=== PATIENT | female | born 1960 | race Caucasian/White ===

== ENCOUNTER → 2019-11-21 | Outpatient (CLI) | payer BC ==
[~2019-11-21] MED LIST: ACHD5005 PO; CEPH500C PO; DICL75TA2 PO; EST.1TD TD; FLDR.1T PO; HYDR1TAB PO; HYDR5TAB PO; IBP600T1 PO; KEFLEX 500MG PO; LIOT25TA4 PO; LIOT5TAB3 PO; LVT.05T PO; NTR50C PO; SULF-222 PO
--- NOTE | 2019-11-21 15:54 | Diagnostic Imaging Report ---
PROCEDURE: US carotid duplex, bilateral. INDICATION: Right-sided carotid bruit TECHNIQUE: Multiple real-time grayscale images were obtained over the carotid arteries in various projections bilaterally. Additional spectral analysis and color Doppler and Duplex images were also obtained. FINDINGS: Color images demonstrate very mild scattered plaque formation. This is most pronounced at the level of the carotid bifurcations. Right Carotid System: Right Common Carotid Artery: Patent. There is no abnormally elevated velocity to suggest a hemodynamically significant stenosis. Right Internal Carotid Artery: Patent. There is no abnormally elevated velocity to suggest a hemodynamically significant stenosis. Right External Carotid Artery: Patent. Left Carotid System: Left Common Carotid Artery: Patent. There is no abnormally elevated velocity to suggest a hemodynamically significant stenosis. Left Internal Carotid Artery: Patent. There is no abnormally elevated velocity to suggest a hemodynamically significant stenosis. Left External Carotid Artery: Patent. Vertebral arteries: Patent and with antegrade direction of flow. DOPPLER (peak systolic velocity M/S Right Left CCA .96 .80 ICA Proximal .29 .59 ICA Mid .78 1.05 ICA Distal 1.17 1.33 RATIO 1.22 1.66 ECA .88 .98 VERT .27 .93 IMPRESSION: 1. Carotid Doppler imaging demonstrates no findings to suggest a hemodynamically significant stenosis of the internal carotid arteries at this time. Parameters based on the consensus panel Saunders-Scale and Doppler ultrasound criteria published August 2003, Radiology, Volume 229. Dictated by: Dictated on workstation # [id number]
== END ==
LOC: RAD 14:59
PROVIDERS: ATTEND Internal Medicine
DX: I63.9 Cerebral infarction, unspecified (principal); I73.9 Peripheral vascular disease, unspecified
CPT/HCPCS: 93880

== ENCOUNTER 2019-12-03 15:16 | Inpatient (IN) | payer BC ==
[2019-12-03] VITALS (7 sets, daily range): BP systolic 117–172; BP diastolic 80–108
[~2019-12-03] VITALS: Ht 167.7 cm; Wt 65.9 kg
[2019-12-03] MEDS ORDERED: NS IV 1000 ML 1,000 ML ONE (15:20)
[2019-12-03] MEDS ORDERED: NS IV 1000 ML 1,000 ML IV SCH ×2 (15:24→15:36)
[2019-12-03] MEDS ORDERED: ADENOSINE 6 MG/2 ML (ADENOCARD) VIAL IV ONE (15:26)
--- NOTE | 2019-12-03 15:27 | ED Cardiac General ---
History of Present Illness General Stated Complaint: CP Source: patient Exam Limitations: no limitations History of Present Illness Date Seen by Provider: Dec 03, 2019 Time Seen by Provider: 15:17 Initial Comments Patient resists ER by private conveyance with chief complaint of some heart palpitations, rapid heart rate and pressure across her chest starting this afternoon. She says started about 5 minutes after taking some cough medicine but she denies taking anything left in, pseudoephedrine etc. She does not have a history of SVT or A. fib. She said her mom did her mom recently of a stroke last year. 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 She's not on blood thinners. She does not history of heart attack or stroke. She does not have stents. She is having any nausea sweats but she does have some lightheadedness and weakness. She has chronically low blood pressure and was started about 5 days ago on a statin by Dr. Hay her primary care doctor. Allergies and Home Medications Allergies Coded Allergies: Sulfa(Sulfonamide Antibiotics) (Unverified Allergy, 04/29/12) Home Medications Cephalexin Monohydrate 500 Mg Capsule, 1 EACH PO DAILY, (Reported) Estradiol 0.1 Mg Patch, 0.1 MG TD ONCE Prescribed by: DEL MORIN on 05/14/13 0907 Levothyroxine Sodium 50 Mcg Tablet, 1 EACH PO DAILY, (Reported) Patient Home Medication List Home Medication List Reviewed: Yes Review of Systems Review of Systems Constitutional: No chills, No diaphoresis EENTM: No Blurred Vision, No Double Vision Respiratory: Denies Cough, Denies Orthopnea Cardiovascular: Chest Pain; Denies Lightheadedness Gastrointestinal: Denies Abdominal Pain, Denies Constipated, Denies Diarrhea, Denies Nausea Genitourinary: Denies Burning, Denies Discharge Musculoskeletal: No back pain, No joint pain Skin: No pruritus, No rash Psychiatric/Neurological: Denies Headache, Denies Numbness Past Yonjctd-Hczhtd-Rkbwpp Hx Patient Social History Alcohol Use: Regular Use Alcohol Beverage of Choice: Wine Recreational Drug Use: No Smoking Status: Never a Smoker Recent Foreign Travel: No Contact w/Someone Who Travel: No Past Medical History Reproductive Disorders: No Female Reproductive Disorders: Menstrual Problems Adrenal Disease, Hypothyroidsim Physical Exam Vital Signs Vital Signs - First Documented 12/03/19 15:18 Temp 36.3 Pulse 189 Resp 24 B/P (MAP) 83/59 (67) Pulse Ox 96 O2 Delivery Room Air Capillary Refill : Height, Weight, BMI Height: '" Weight: 120lbs. oz. 54.604173kv; BMI Method: General Appearance: No Apparent Distress, Anxious HEENT: PERRL/EOMI, Pharynx Normal, Moist Mucous Membranes Neck: Full Range of Motion, Normal Inspection Respiratory: No Accessory Muscle Use, Rales (right base), Respiratory Distress (mild) Cardiovascular: No Edema, Irregularly Irregular, Tachycardia Gastrointestinal: Normal Bowel Sounds, No Pulsatile Mass Extremity: Normal Capillary Refill, Normal Inspection, No Pedal Edema Neurologic/Psychiatric: Alert, Oriented x3 Skin: Normal Color, Warm/Dry Focused Exam Lactate Level 12/03/19 16:00: Lactic Acid Level 2.12*H Lactic Acid Level Laboratory Tests Test 12/03/19 16:00 Lactic Acid Level 2.12 MMOL/L (0.50-2.00) *H Progress/Results/Core Measures Results/Orders Lab Results Laboratory Tests Test 12/03/19 15:25 12/03/19 16:00 Range/Units White Blood Count 15.1 H 4.3-11.0 10^3/uL Red Blood Count 4.61 4.35-5.85 10^6/uL Hemoglobin 14.5 11.5-16.0 G/DL Hematocrit 44 35-52 % Mean Corpuscular Volume 95 80-99 FL Mean Corpuscular Hemoglobin 32 25-34 PG Mean Corpuscular Hemoglobin Concent 33 32-36 G/DL Red Cell Distribution Width 13.4 10.0-14.5 % Platelet Count 272 130-400 10^3/uL Mean Platelet Volume 9.9 7.4-10.4 FL Neutrophils (%) (Auto) 84 H 42-75 % Lymphocytes (%) (Auto) 9 L 12-44 % Monocytes (%) (Auto) 6 0-12 % Eosinophils (%) (Auto) 1 0-10 % Basophils (%) (Auto) 0 0-10 % Neutrophils # (Auto) 12.7 H 1.8-7.8 X 10^3 Lymphocytes # (Auto) 1.4 1.0-4.0 X 10^3 Monocytes # (Auto) 0.9 0.0-1.0 X 10^3 Eosinophils # (Auto) 0.1 0.0-0.3 10^3/uL Basophils # (Auto) 0.0 0.0-0.1 10^3/uL Neutrophils % (Manual) 85 % Lymphocytes % (Manual) 9 % Monocytes % (Manual) 6 % Prothrombin Time 13.4 12.2-14.7 SEC INR Comment 1.0 0.8-1.4 Activated Partial Thromboplast Time 25 24-35 SEC Sodium Level 140 135-145 MMOL/L Potassium Level 3.5 L 3.6-5.0 MMOL/L Chloride Level 102 98-107 MMOL/L Carbon Dioxide Level 26 21-32 MMOL/L Anion Gap 12 5-14 MMOL/L Blood Urea Nitrogen 14 7-18 MG/DL Creatinine 0.80 0.60-1.30 MG/DL Estimat Glomerular Filtration Rate > 60 BUN/Creatinine Ratio 18 Glucose Level 137 H 70-105 MG/DL Calcium Level 9.6 8.5-10.1 MG/DL Corrected Calcium 9.4 8.5-10.1 MG/DL Magnesium Level 2.0 1.6-2.4 MG/DL Total Bilirubin 0.2 0.1-1.0 MG/DL Aspartate Amino Transf (AST/SGOT) 24 5-34 U/L Alanine Aminotransferase (ALT/SGPT) 18 0-55 U/L Alkaline Phosphatase 68 40-136 U/L Myoglobin 46.9 10.0-92.0 NG/ML Troponin I < 0.028 <0.028 NG/ML Total Protein 7.2 6.4-8.2 GM/DL Albumin 4.3 3.2-4.5 GM/DL Smear Scan YES Lactic Acid Level 2.12 *H 0.50-2.00 MMOL/L Micro Results Microbiology 12/03/19 Influenza Types A,B Antigen ([facility]AT[facility]) - Final, Complete My Orders Orders - SAMARA ACEVEDO Ekg Tracing (12/03/19 15:18) Continuous Ekg Monitoring (12/03/19 15:18) Cbc With Automated Diff (12/03/19 15:21) Magnesium (12/03/19 15:21) Chest 1 View, Ap/Pa Only (12/03/19 15:21) Ekg Tracing (12/03/19 15:21) Comprehensive Metabolic Panel (12/03/19 15:21) Myoglobin Serum (12/03/19 15:21) Protime With Inr (12/03/19 15:21) Partial Thromboplastin Time (12/03/19 15:21) O2 (12/03/19 15:21) Monitor-Rhythm Ecg Trace Only (12/03/19 15:21) Lipid Panel (12/04/19 06:00) Ed Iv/Invasive Line Start (12/03/19 15:21) Troponin I (12/03/19 15:21) Aspirin Chewable Tablet (Baby Aspirin Ch (12/03/19 15:30) Ed Iv/Invasive Line Start (12/03/19 15:24) Ns Iv 1000 Ml (Sodium Chloride 0.9%) (12/03/19 15:24) Ns Iv 1000 Ml (Sodium Chloride 0.9%) (12/03/19 15:20) Adenosine Injection (Adenocard Injection (12/03/19 15:26) Manual Differential (12/03/19 15:25) Digoxin Injection (Lanoxin Injection) (12/03/19 15:30) Digoxin Injection (Lanoxin Injection) (12/03/19 15:45) Ed Iv/Invasive Line Start (12/03/19 15:36) Ns Iv 1000 Ml (Sodium Chloride 0.9%) (12/03/19 15:36) Ua Culture If Indicated (12/03/19 15:47) Drug Screen Stat (Urine) (12/03/19 15:47) Blood Culture (12/03/19 15:49) Sputum Culture (12/03/19 15:49) Vital Signs Adult Sepsis Patie Q15M (12/03/19 15:49) Remove Rings In Anticipation O (12/03/19 15:49) Lactic Acid Analyzer (12/03/19 15:49) Influenza A And B Antigens (12/03/19 15:49) Ceftriaxone For Iv Use (Rocephin For I (12/03/19 16:00) Azithromycin Injection (Zithromax Inject (12/03/19 16:00) Enoxaparin Injection (Lovenox Injection) (12/03/19 16:00) Medications Given in ED Current Medications Medications Dose Ordered Sig/Emy Route Start Time Stop Time Status Last Admin Dose Admin Aspirin 324 mg ONCE ONCE PO 12/03/19 15:30 12/03/19 15:31 DC 12/03/19 15:28 324 MG Azithromycin 500 mg/Sodium Chloride 250 ml @ 250 mls/hr ONCE ONCE IV 12/03/19 16:00 12/03/19 16:59 12/03/19 16:37 250 MLS/HR Ceftriaxone Sodium 1000 mg/ Sterile Water 10 ml @ 200 mls/hr ONCE ONCE IV 12/03/19 16:00 12/03/19 16:02 DC 12/03/19 16:29 200 MLS/HR Digoxin 0.5 mg ONCE ONCE IV 12/03/19 15:45 12/03/19 15:46 DC 12/03/19 15:39 0.5 MG Enoxaparin Sodium 60 mg ONCE ONCE SC 12/03/19 16:00 12/03/19 16:01 DC 12/03/19 16:12 60 MG Vital Signs/I&O 12/03/19 15:18 Temp 36.3 Pulse 189 Resp 24 B/P (MAP) 83/59 (67) Pulse Ox 96 O2 Delivery Room Air Progress Progress Note #1: Time: 16:07 Progress Note A. fib with rapid ventricular response however she has a loose, productive cough and has been treated with doxycycline outpatient for bronchitis. Suspect she may have underlying pneumonia. We'll give her Rocephin and azithromycin and after consultation with cardiology we have ordered Lovenox, 2 L of fluid, obtained placement in the ICU start her on Cardizem drip. Progress Note #2: Time: 16:55 Progress Note After visiting with Dr. English and he recommends a dose of Solu-Medrol for stress she is on hydrocortisone for adrenal insufficiency. 125 mg IV ordered. Initial ECG Impression Date: Dec 03, 2019 Initial ECG Impression Time: 15:22 Initial ECG Rate: 165 Initial ECG Rhythm: A Fib/Flutter Initial ECG Intervals: QT (477) Initial ECG Impression: Normal, Nonspecific Changes Initial ECG Comparisson: No Previous ECG Available Comment Atrial fibrillation with rapid ventricular response. Diagnostic Imaging Diagonstic Imaging: Xray Plain Films/CT/US/NM/MRI: chest Comments NAME: MARCIA PEÑA [facility] REC#: [id number] PT STATUS: REG ER : 1960 PHYSICIAN: SAMARA ACEVEDO MD ADMIT DATE: 12/03/19/ER Draft Date of Exam:12/03/19 CHEST 1 VIEW, AP/PA ONLY INDICATION: Cough and increased white blood cell count. Frontal chest obtained at 03:52 p.m. There is no prior study for comparison. Heart is normal in size. Mediastinal silhouette is unremarkable. There is some infiltrate in the right medial base. The left lung is clear. There is no pneumothorax or pleural fluid. IMPRESSION: Focal infiltrate in right medial base. Otherwise negative chest. Dictated on workstation # [id number] Dict: 12/03/19 1604 Trans: 12/03/19 1611 [id number] Interpreted by: UMANG AZUL MD Electronically signed by: Consults : Consulting Physician: CALOS ENGLISH MD Consults Notes Discussed the case with Dr. English, cardiology on-call. He is in the middle the case but after reviewing the case over the telephone he says infused 2 L of IV fluid give her half a milligram of digoxin IV and when the pressure improves we can start Cardizem. At this time does not recommend electrocardioversion or Adenocard. The rate does appear to be atrial fib. Departure Communication (Admissions) Time/Spoke to Admitting Phy: 15:45 Discussed the case with Dr. Hanson and she agrees to admit the patient to the ICU with consultation to cardiology. Rocephin and azithromycin is okay for pneumonia. Time/Spoke to Consulting Phy: 15:[address] English and when his grandmother's case he will come down to review the patient. We agreed upon Lovenox if no contraindications, digoxin and Cardizem for blood pressure systolic rises above 100. Impression Primary Impression: Atrial fibrillation with rapid ventricular response Additional Impressions: Pneumonia Qualified Codes: J18.9 - Pneumonia, unspecified organism Sepsis Qualified Codes: A41.9 - Sepsis, unspecified organism Disposition: ADMITTED INPATIENT Condition: Critical Admissions Decision to Admit Reason: Admit from ER (General) Decision to Admit/Date: Dec 03, 2019 Time/Decision to Admit Time: 16:09 Departure-Patient Inst. Referrals: KRYSTIN HAY MD (PCP/Family) Primary Care Physician SAMARA ACEVEDOb 12, 2020 15:27
[2019-12-03] MEDS ORDERED: ASPIRIN 81 MG CHEW (CHILDREN'S ASA) PO ONE (15:30)
[2019-12-03] MEDS ORDERED: DIGOXIN 0.25 MG/ML (LANOXIN) 2 ML AMP ONE (15:30)
[2019-12-03 15:32] LABS: BASOPHILS % (AUTO) 0 % (0-10); EOSINOPHILS # (AUTO) 0.1 10^3/uL (0.0-0.3); EOSINOPHILS % (AUTO) 1 % (0-10); HEMATOCRIT 44 % (35-52); HEMOGLOBIN 14.5 G/DL (11.5-16.0); LYMPHOCYTES # (AUTO) 1.4 X 10^3 (1.0-4.0); LYMPHOCYTES % (AUTO) 9 % (12-44); MEAN CORPUSCULAR HEMOGLOBIN 32 PG (25-34); MEAN CORPUSCULAR HGB CONC 33 G/DL (32-36); MEAN CORPUSCULAR VOLUME 95 FL (80-99); MEAN PLATELET VOLUME 9.9 FL (7.4-10.4); MONOCYTES # (AUTO) 0.9 X 10^3 (0.0-1.0); MONOCYTES % (AUTO) 6 % (0-12); NEUTROPHILS # (AUTO) 12.7 X 10^3 (1.8-7.8); NEUTROPHILS % (AUTO) 84 % (42-75); PLATELET COUNT 272 10^3/uL (130-400); RED CELL DISTRIBUTION WIDTH 13.4 % (10.0-14.5); WHITE BLOOD COUNT 15.1 10^3/uL (4.3-11.0)
[2019-12-03 15:44] LABS: PROTHROMBIN TIME PATIENT 13.4 SEC (12.2-14.7)
[2019-12-03] MEDS ORDERED: DIGOXIN 0.25 MG/ML (LANOXIN) 2 ML AMP IV ONE (15:45)
[2019-12-03 15:50] LABS: ALANINE AMINOTRANSFERASE 18 U/L (0-55); ALBUMIN 4.3 GM/DL (3.2-4.5); ALKALINE PHOSPHATASE 68 U/L (40-136); BILIRUBIN,TOTAL 0.2 MG/DL (0.1-1.0); BUN/CREATININE RATIO 18; CALCIUM 9.6 MG/DL (8.5-10.1); CARBON DIOXIDE 26 MMOL/L (21-32); CHLORIDE 102 MMOL/L (98-107); GFR ESTIMATED > 60; GLUCOSE 137 MG/DL (70-105); POTASSIUM 3.5 MMOL/L (3.6-5.0); SODIUM 140 MMOL/L (135-145); TOTAL PROTEIN 7.2 GM/DL (6.4-8.2)
[2019-12-03 15:57] LABS: LYMPHOCYTES % (MANUAL) 9 %; MONOCYTES % (MANUAL) 6 %; NEUTROPHILS % (MANUAL) 85 %; SMEAR SCAN COMMENT YES
[2019-12-03] MEDS ORDERED: ENOXAPARIN 60 MG/0.6 ML (LOVENOX) SYR SC ONE (16:00)
[2019-12-03] MEDS ORDERED: AZITHROMYCIN INJECTION 500 MG in NS (IVPB) 250 ML IV ONE (16:00)
[2019-12-03] MEDS ORDERED: cefTRIAXone FOR IV USE 1,000 MG in WATER (STERILE) FOR INJECTION 10 ML IV ONE (16:00)
--- NOTE | 2019-12-03 16:12 | Diagnostic Imaging Report ---
INDICATION: Cough and increased white blood cell count. Frontal chest obtained at 03:52 p.m. There is no prior study for comparison. Heart is normal in size. Mediastinal silhouette is unremarkable. There is some infiltrate in the right medial base. The left lung is clear. There is no pneumothorax or pleural fluid. IMPRESSION: Focal infiltrate in right medial base. Otherwise negative chest. Dictated by: Dictated on workstation # [id number]
[2019-12-03 16:19] LABS: BILIRUBIN,URINE NEGATIVE (NEGATIVE); CLARITY,URINE CLEAR; COLOR,URINE YELLOW; GLUCOSE, URINE (UA) NEGATIVE (NEGATIVE); KETONES,URINE TRACE (NEGATIVE); LEUKOCYTE ESTERASE ,URINE NEGATIVE (NEGATIVE); NITRITE,URINE NEGATIVE (NEGATIVE); PH,URINE 6.5 (5-9); PROTEIN,URINE NEGATIVE (NEGATIVE)
[2019-12-03] MEDS ORDERED: 1/2 NS W/KCL 20 MEQ/L 1,000 ML IV ONE (16:23)
[2019-12-03] MEDS ORDERED: 1/2 NS W/KCL 20 MEQ/L 1,000 ML IV SCH (16:30)
[2019-12-03 16:33] LABS: BACTERIA,URINE TRACE /HPF; RBC,URINE 0-2 /HPF; WBC,URINE RARE /HPF
[2019-12-03 16:37] LABS: AMPHETAMINE SCREEN, URINE NEGATIVE (NEGATIVE); BARBITURATE SCREEN URINE NEGATIVE (NEGATIVE); BENZODIAZEPINES SCREEN URINE NEGATIVE (NEGATIVE); CANNABINOID SCREEN, URINE NEGATIVE (NEGATIVE); COCAINE SCREEN URINE NEGATIVE (NEGATIVE); METHADONE STAT NEGATIVE (NEGATIVE); METHAMPHETAMINE SCREEN URINE S NEGATIVE (NEGATIVE); OPIATE SCREEN URINE NEGATIVE (NEGATIVE); OXYCODONE STAT NEGATIVE (NEGATIVE); PROPOXYPHENE STAT NEGATIVE (NEGATIVE); TRICYCLIC ANTIDEPRESSANTS SCRE NEGATIVE (NEGATIVE)
--- NOTE | 2019-12-03 16:40 | NUR ---
Marry reported Dr. English would like to see pt in ED, so holding pt in ED now.
--- NOTE | 2019-12-03 16:47 | NUR ---
Dr. English in room with pt at this time.
[2019-12-03] MEDS ORDERED: methylPREDNISolone 125 MG (Solu-MEDROL) VIAL IVP ONE (17:00)
--- NOTE | 2019-12-03 17:09 | Consultation-Cardiology ---
HPI-Cardiology Cardiology Consultation Date of Consultation 12/03/19 Date of Admission Time Seen by Provider: 17:04 Indication: tachycardia HPI 59-year-old lady with history of hypothyroidism, history of Whit[place] disease, starting to have cough and shortness of breath which has been worsening recently. Started to have chest pain tightness in her chest and feeling rapid heart rate, sent to the emergency room by Dr. Hay noted to be in atrial fibrillation with rapid ventricular response and hypotensive. So far received 2 L of IV fluid and still borderline hypotensive complaining of fatigue, loss of energy, no fever. No syncope or near syncopal episodes. No claudications. Home Medications & Allergies Allergies: Coded Allergies: Sulfa(Sulfonamide Antibiotics) (Unverified Allergy, 04/29/12) Home Medication List Reviewed: Yes SSC-Bgcqlf-[id number] Hx Patient Social History Marital Status: Employed/Student: employed Alcohol Use: Regular Use Recreational Drug Use: No Smoking Status: Never a Smoker 2nd Hand Smoke Exposure: No Recent Foreign Travel: No Recent Infectious Disease Expo: No Recent Hopitalizations: No Past Medical History Discussed below Family Medical History Family Medical Hx Noncontributory to her current condition Review of Systems-General Review of Systems Constitutional: No chills, No diaphoresis; malaise, weakness EENTM: see HPI, no symptoms reported Respiratory: see HPI, cough, dyspnea on exertion; No hemoptysis, No orthopnea, No phlegm; short of breath; No stridor; wheezing; No other Cardiovascular: see HPI, chest pain; No edema, No Hx of Intervention; palpitations; No syncope, No vascular heart diseas, No other Gastrointestinal: no symptoms reported, see HPI Genitourinary: no symptoms reported, see HPI Musculoskeletal: see HPI; No back pain, No joint pain Skin: see HPI; No pruritus, No rash Psychiatric/Neurological: No Symptoms Reported, See HPI; Denies Headache, Denies Numbness Reviewed Test Results Reviewed Test Results Lab Laboratory Tests Test 12/03/19 15:25 12/03/19 16:00 12/03/19 16:11 Range/Units White Blood Count 15.1 H 4.3-11.0 10^3/uL Red Blood Count 4.61 4.35-5.85 10^6/uL Hemoglobin 14.5 11.5-16.0 G/DL Hematocrit 44 35-52 % Mean Corpuscular Volume 95 80-99 FL Mean Corpuscular Hemoglobin 32 25-34 PG Mean Corpuscular Hemoglobin Concent 33 32-36 G/DL Red Cell Distribution Width 13.4 10.0-14.5 % Platelet Count 272 130-400 10^3/uL Mean Platelet Volume 9.9 7.4-10.4 FL Neutrophils (%) (Auto) 84 H 42-75 % Lymphocytes (%) (Auto) 9 L 12-44 % Monocytes (%) (Auto) 6 0-12 % Eosinophils (%) (Auto) 1 0-10 % Basophils (%) (Auto) 0 0-10 % Neutrophils # (Auto) 12.7 H 1.8-7.8 X 10^3 Lymphocytes # (Auto) 1.4 1.0-4.0 X 10^3 Monocytes # (Auto) 0.9 0.0-1.0 X 10^3 Eosinophils # (Auto) 0.1 0.0-0.3 10^3/uL Basophils # (Auto) 0.0 0.0-0.1 10^3/uL Neutrophils % (Manual) 85 % Lymphocytes % (Manual) 9 % Monocytes % (Manual) 6 % Prothrombin Time 13.4 12.2-14.7 SEC INR Comment 1.0 0.8-1.4 Activated Partial Thromboplast Time 25 24-35 SEC Sodium Level 140 135-145 MMOL/L Potassium Level 3.5 L 3.6-5.0 MMOL/L Chloride Level 102 98-107 MMOL/L Carbon Dioxide Level 26 21-32 MMOL/L Anion Gap 12 5-14 MMOL/L Blood Urea Nitrogen 14 7-18 MG/DL Creatinine 0.80 0.60-1.30 MG/DL Estimat Glomerular Filtration Rate > 60 BUN/Creatinine Ratio 18 Glucose Level 137 H 70-105 MG/DL Calcium Level 9.6 8.5-10.1 MG/DL Corrected Calcium 9.4 8.5-10.1 MG/DL Magnesium Level 2.0 1.6-2.4 MG/DL Total Bilirubin 0.2 0.1-1.0 MG/DL Aspartate Amino Transf (AST/SGOT) 24 5-34 U/L Alanine Aminotransferase (ALT/SGPT) 18 0-55 U/L Alkaline Phosphatase 68 40-136 U/L Myoglobin 46.9 10.0-92.0 NG/ML Troponin I < 0.028 <0.028 NG/ML Total Protein 7.2 6.4-8.2 GM/DL Albumin 4.3 3.2-4.5 GM/DL Smear Scan YES Lactic Acid Level 2.12 *H 0.50-2.00 MMOL/L Urine Color YELLOW Urine Clarity CLEAR Urine pH 6.5 5-9 Urine Specific [place] 1.010 L 1.016-1.022 Urine Protein NEGATIVE NEGATIVE Urine Glucose (UA) NEGATIVE NEGATIVE Urine Ketones TRACE H NEGATIVE Urine Nitrite NEGATIVE NEGATIVE Urine Bilirubin NEGATIVE NEGATIVE Urine Urobilinogen 0.2 < = 1.0 MG/DL Urine Leukocyte Esterase NEGATIVE NEGATIVE Urine RBC (Auto) NEGATIVE NEGATIVE Urine RBC 0-2 /HPF Urine WBC RARE /HPF Urine Squamous Epithelial Cells 5-10 /HPF Urine Crystals NONE /LPF Urine Bacteria TRACE /HPF Urine Casts PRESENT /LPF Urine Hyaline Casts 5-10 H /LPF Urine Mucus NEGATIVE /LPF Urine Culture Indicated NO Urine Opiates Screen NEGATIVE NEGATIVE Urine Oxycodone Screen NEGATIVE NEGATIVE Urine Methadone Screen NEGATIVE NEGATIVE Urine Propoxyphene Screen NEGATIVE NEGATIVE Urine Barbiturates Screen NEGATIVE NEGATIVE Ur Tricyclic Antidepressants Screen NEGATIVE NEGATIVE Urine Phencyclidine Screen NEGATIVE NEGATIVE Urine Amphetamines Screen NEGATIVE NEGATIVE Urine Methamphetamines Screen NEGATIVE NEGATIVE Urine Benzodiazepines Screen NEGATIVE NEGATIVE Urine Cocaine Screen NEGATIVE NEGATIVE Urine Cannabinoids Screen NEGATIVE NEGATIVE Physical Exam Physical Exam Vital Signs Vital Signs - First Documented 12/03/19 15:18 Temp 36.3 Pulse 189 Resp 24 B/P (MAP) 83/59 (67) Pulse Ox 96 O2 Delivery Room Air Capillary Refill : Less Than 3 Seconds Height, Weight, BMI Height: '" Weight: 120lbs. oz. 54.500178xs; 19.00 BMI Method: General Appearance: No Apparent Distress, Anxious HEENT: PERRL/EOMI, Pharynx Normal, Moist Mucous Membranes Neck: Full Range of Motion, Normal Inspection Respiratory: No Accessory Muscle Use, Crackles, Decreased Breath Sounds, Rales, Rhonci, Wheezing Cardiovascular: No Edema, Irregularly Irregular, Tachycardia Gastrointestinal: Normal Bowel Sounds, No Pulsatile Mass Extremity: Normal Capillary Refill, Normal Inspection, No Pedal Edema Neurologic/Psychiatric: Alert, Oriented x3 Skin: Normal Color, Warm/Dry A/P-Cardiology Admission Diagnosis Atrial fibrillation Tachycardia Pneumonia Hypotension Assessment/Plan Atrial fibrillation with rapid ventricular response, hypotensive, cannot tolerate aggressive treatment at this time. So far I started on IV fluids, steroids and digoxin IV, I am planning to add Cardizem once her blood pressure is more stable. Started on Lovenox for now. Hypotension, multifactorial, sepsis and pneumonia in addition to tachycardia and hypokalemia. Replace and monitor next Whit[place] disease, has been on hydrocortisone as an outpatient. I will use stress doses of steroid due to the recent infection which could be participating in her hypotension Hypothyroidism, maintained on thyroid replacement, managed by primary care physician next Chest pain probably secondary to tachycardia and old other comorbid condition Pneumonia, started on antibiotic, managed by primary care physician CALOS BERMUDEZ MD Dec 03, 2019 17:09
[2019-12-03] MEDS ORDERED: ACETAMINOPHEN 500 MG TAB (TYLENOL) PO PRN (17:30)
[2019-12-03] MEDS ORDERED: ONDANSETRON 4 MG/2 ML (SDV) Z0FRAN IV PRN (17:30)
[2019-12-03] MEDS ORDERED: EPINEPHrine 1 MG INJECTION 2 MG in NS (IVPB) 250 ML IV SCH (17:30)
[2019-12-03] MEDS: dilTIAZem DRIP 125 MG/125 ML DRIP IV SCH (18:38)
[2019-12-03] MEDS: NOREPINEPHRINE 4 MG/250 ML 250 ML IV SCH (18:42)
[2019-12-03] MEDS: VASOPRESSIN INJECTION 20 UNIT in NORMAL SALINE 100 ML IV SCH (18:43)
[2019-12-03] MEDS: NS W/KCL 20 MEQ/L 1,000 ML IV SCH ×2 (18:45→21:30)
[2019-12-03] MEDS ORDERED: HYDROCORTISONE 20 MG (CORTEF) TAB PO NR (21:00)
--- NOTE | 2019-12-03 23:49 | NUR ---
THIS RN NOTIFIED E-ICU OF PT BP 167/105 AND THAT PT HAS BEEN SUSTAINING BP'S AT 150-170S/100S.
[2019-12-04] VITALS (29 sets, daily range): BP systolic 135–180; BP diastolic 78–118
[2019-12-04] MEDS: NS W/KCL 20 MEQ/L 1,000 ML IV SCH ×3 (01:30→16:02)
[2019-12-04] MEDS: VASOPRESSIN INJECTION 20 UNIT in NORMAL SALINE 100 ML IV SCH ×3 (02:08→17:38)
[2019-12-04] MEDS: LABETALOL HCL 20 MG/4 ML VIAL IV PRN ×2 (02:32→14:35)
[2019-12-04 04:09] LABS: BASOPHILS % (AUTO) 0 % (0-10); EOSINOPHILS % (AUTO) 0 % (0-10); HEMATOCRIT 38 % (35-52); HEMOGLOBIN 12.3 G/DL (11.5-16.0); LYMPHOCYTES # (AUTO) 0.4 X 10^3 (1.0-4.0); LYMPHOCYTES % (AUTO) 4 % (12-44); MEAN CORPUSCULAR HEMOGLOBIN 31 PG (25-34); MEAN CORPUSCULAR HGB CONC 33 G/DL (32-36); MEAN CORPUSCULAR VOLUME 96 FL (80-99); MEAN PLATELET VOLUME 10.6 FL (7.4-10.4); MONOCYTES # (AUTO) 0.2 X 10^3 (0.0-1.0); MONOCYTES % (AUTO) 1 % (0-12); NEUTROPHILS # (AUTO) 11.2 X 10^3 (1.8-7.8); NEUTROPHILS % (AUTO) 95 % (42-75); PLATELET COUNT 194 10^3/uL (130-400); RED CELL DISTRIBUTION WIDTH 13.4 % (10.0-14.5); WHITE BLOOD COUNT 11.7 10^3/uL (4.3-11.0)
--- NOTE | 2019-12-04 04:34 | Pulmonary Consultation ---
History of Present Illness History of Present Illness Date Seen by Provider: Dec 04, 2019 Time Seen by Provider: 04:28 Date of Admission Reason for Visit: tachycardia History of Present Illness 59yo with hx of addisons disease, hypothyroid presented to ED secondary palpitations starting just prior to ED admission. While in the ED she was found to have Afib RVR and was mildly hypotensive. She was admitted to ICU with cardizem gtt and cardiology consulted. Troponin is also elevated to 1.8. pt has no hx of Afib. Allergies and Home Medications Allergies Coded Allergies: Sulfa (Sulfonamide Antibiotics) (Unverified Allergy, Unknown, 12/03/19) Home Medications Cephalexin Monohydrate 500 Mg Capsule, 1 EACH PO DAILY, (Reported) Estradiol 0.1 Mg Patch, 0.1 MG TD ONCE Prescribed by: DEL MORIN on 05/14/13 0907 Levothyroxine Sodium 50 Mcg Tablet, 1 EACH PO DAILY, (Reported) Past Rinkfbh-Ekhwuw-Qzbdjb Hx Patient Social History Alcohol Use: Regular Use Alcohol Beverage of Choice: Wine Recreational Drug Use: No Smoking Status: Never a Smoker 2nd Hand Smoke Exposure: No Recent Foreign Travel: No Contact w/Someone Who Travel: No Recent Infectious Disease Expo: No Recent Hopitalizations: No Past Medical History Surgeries: Yes Hysterectomy Respiratory: No Cardiac: No High Cholesterol Neurological: No Reproductive Disorders: No Female Reproductive Disorders: 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 UTI-Chronic Gastrointestinal: No Chronic Constipation Musculoskeletal: Yes (bursitis) Endocrine: Yes Adrenal Disease, Hypothyroidsim HEENT: No Cancer: No Psychosocial: No Blood Disorders: No Adverse Reaction/Blood Tranf: No Review of Systems Time Seen by Provider: 09:09 Constitutional: Weakness, Malaise; No: Fever, Chills, Sweats, Other Eyes: No: Pain, Vision change, Conjunctivae inflammation, Eyelid inflammation, Other, Redness ENT: No: Ear pain, Ear discharge, Nose pain, Nose discharge, Nose congestion, Mouth pain, Mouth swelling, Throat pain, Throat swelling, Other Respiratory: Cough, Dry, Shortness of breath Cardiovascular: Chest Pain, Palpitations Sepsis Event Evaluation Height, Weight, BMI Height: '" Weight: 120lbs. oz. 54.397535jz; 20.97 BMI Method: Exam Exam Vital Signs Date Time Temp Pulse Resp B/P (MAP) Pulse Ox O2 Delivery O2 Flow Rate FiO2 2/13/20 03:26 36.4 12/04/19 01:00 66 16 154/95 (114) 94 Room Air 12/04/19 01:00 64 12/04/19 00:31 Room Air 12/04/19 00:00 68 13 155/98 (117) 94 Room Air 12/03/19 23:26 36.2 12/03/19 23:00 69 17 171/100 (123) 95 Room Air 12/03/19 22:00 79 15 159/105 (123) 95 Room Air 12/03/19 21:00 77 18 172/103 (126) 95 Room Air 12/03/19 20:00 80 18 167/108 (127) 96 Room Air 12/03/19 20:00 Room Air 12/03/19 19:51 37.0 12/03/19 19:00 88 14 145/105 (118) 95 Room Air 12/03/19 19:00 142 12/03/19 18:00 120 14 117/92 (100) 96 Room Air 12/03/19 17:30 151 16 121/80 (94) 93 Room Air 12/03/19 17:20 95 Room Air 12/03/19 17:18 155 12/03/19 17:05 36.3 144 15 102/78 (67) 96 Room Air 12/03/19 15:18 36.3 189 24 83/59 (67) 96 Room Air I & O 12/04/19 07:00 Intake Total 4060 ml Balance 4060 ml Height & Weight Height: '" Weight: 120lbs. oz. 54.923142pk; 20.97 BMI Method: General Appearance: No Apparent Distress, Anxious HEENT: PERRL/EOMI, Pharynx Normal, Moist Mucous Membranes Neck: Full Range of Motion, Normal Inspection Respiratory: No Accessory Muscle Use, Crackles, Decreased Breath Sounds, Rales, Rhonci, Wheezing Cardiovascular: No Edema, Irregularly Irregular, Tachycardia Capillary Refill: Less Than 3 Seconds Extremity: Normal Capillary Refill, Normal Inspection, No Pedal Edema Neurologic/Psychiatric: Alert, Oriented x3 Skin: Normal Color, Warm/Dry Results Lab Laboratory Tests 12/03/19 15:25 12/04/19 03:03 Assessment/Plan Assessment/Plan Atrial fibrillation with RVR -Cardizem gtt -Cardiology following Pneumonia -Continue rocephin, azithromycin NSTEMI -Cardiology following Hypertension Avel disease, has been on hydrocortisone as an outpatient Hypothyroid -Synthroid ZENIA SANTIAGO DO Dec 04, 2019 04:34
[2019-12-04 04:40] LABS: BUN/CREATININE RATIO 13; CALCIUM 7.3 MG/DL (8.5-10.1); CARBON DIOXIDE 19 MMOL/L (21-32); CHLORIDE 112 MMOL/L (98-107); CHOLESTEROL 132 MG/DL (< 200); GFR ESTIMATED > 60; GLUCOSE 147 MG/DL (70-105); HDL CHOLESTEROL 83 MG/DL (40-60); MAGNESIUM 1.8 MG/DL (1.6-2.4); PHOSPHORUS 2.5 MG/DL (2.3-4.7); POTASSIUM 3.7 MMOL/L (3.6-5.0); SODIUM 141 MMOL/L (135-145); TRIGLYCERIDES 78 MG/DL (<150); VLDL CHOLESTEROL 16 MG/DL (5-40)
[2019-12-04] MEDS: ENOXAPARIN 60 MG/0.6 ML (LOVENOX) SYR SC SCH ×2 (04:49→17:10)
[2019-12-04] MEDS: NOREPINEPHRINE 4 MG/250 ML 250 ML IV SCH ×2 (04:58→15:17)
[2019-12-04] MEDS: POTASSIUM CL 10MEQ/50ML IVPB 50 ML IV SCH ×3 (05:11→06:44)
[2019-12-04] MEDS: MAGNESIUM 1 GM/100 ML IVPB 100 ML IV SCH (05:11)
[2019-12-04] MEDS: KCL 20 MEQ TAB (K-DUR) PO SCH (05:11)
--- NOTE | 2019-12-04 07:17 | Cardiology Progress Note ---
Subjective Date Seen by Provider: Dec 04, 2019 Time Seen by Provider: 07:14 Subjective/Events-last exam Patient is laying down in bed, feeling better, still having cough and chest pain on coughing Review of Systems General: No Chills, No Night Sweats, No Fatigue, No Malaise, No Appetite, No Other HEENT: No Head Aches, No Visual Changes, No Eye Pain, No Ear Pain, No Dysphasia, No Sinus Congestion, No Post Nasal Drip, No Sore Throat, No Other Pulmonary: Dyspnea, Cough; No Pleuritic Chest Pain, No Other Cardiovascular: No: Chest Pain, Palpitations, Orthopnea, Paroxysmal Noc. Dyspnea, Edema, Lt Headedness, Other Focused Exam Lactate Level 12/03/19 16:00: Lactic Acid Level 2.12*H 12/03/19 17:52: Lactic Acid Level 1.26 Objective-Cardiology Exam Last Set of Vital Signs Vital Signs 12/04/19 12/04/19 03:26 06:00 Temp 36.4 Pulse 69 Resp 17 B/P (MAP) 140/92 (108) Pulse Ox 96 O2 Delivery Room Air Capillary Refill : Less Than 3 Seconds I&O Intake and Output 12/04/19 00:00 Intake Total 3010 ml Balance 3010 ml Intake Oral 0 ml IV Total 3010 ml # Voids 8 # Bowel Movements 3 Daily Weight Change No General: Alert, Oriented X3, Cooperative HEENT: Atraumatic, PERRLA Neck: Supple, No JVD, No Thyromegaly Lungs: Normal Air Movement, Other (Bilateral rhonchi) Heart: Regular Rate, Normal S1, Normal S2, No Murmurs Abdomen: Normal Bowel Sounds, Soft, No Tenderness, No Hepatosplenomegaly, No Masses Extremities: No Clubbing, No Cyanosis, No Edema, Normal Pulses, No T enderness/Swelling Skin: No Rashes, No Breakdown, No Significant Lesion Neuro: Normal Gait, Normal Speech, Strength at 5/5 X4 Ext, Normal Tone, Sensation Intact Psych/Mental Status: Mental Status NL, Mood NL Results Lab Laboratory Tests 12/03/19 15:25 12/04/19 03:03 A/P-Cardiology Admission Diagnosis Non-ST elevation myocardial infarction Paroxysmal atrial fibrillation Pneumonia Hypothyroidism Assessment/Plan Non-ST elevation myocardial infarction, could be secondary to tachycardia and hypotension, underlying coronary artery disease cannot be excluded, I am planning to proceed with cardiac catheterization possible PTCA. Paroxysmal atrial fibrillation with rapid ventricular response, converted to sinus rhythm, currently on Cardizem, I will stop the drip and continue to monitor Status post hypotensive episode, multifactorial, better at this time Avel disease, has been on hydrocortisone as an outpatient, given steroid dose in the emergency room, I recommend stress dose of steroid at this time. Pneumonia, receiving antibiotic, managed by Dr. Noyola Hypothyroidism, managed by primary care physician Clinical Quality Measures DVT/VTE Risk/Contraindication: Risk Factor Score Per Nursin RFS Level Per Nursing on Admit: 4+=Very High CALOS BERMUDEZ MD Dec 04, 2019 07:16
[2019-12-04] MEDS ORDERED: HYDROCORTISONE 20 MG (CORTEF) TAB PO SCH ×2 (07:30→14:00)
[2019-12-04] MEDS ORDERED: HYDROCORTISONE 20 MG (CORTEF) TAB PO NR ×2 (07:30→14:00)
[2019-12-04] MEDS: NS IV 1000 ML 1,000 ML IV SCH ×4 (07:31→22:44)
--- NOTE | 2019-12-04 08:03 | Diagnostic Imaging Report ---
CHEST 1 VIEW, AP/PA ONLY Indication: Dyspnea Comparison: 12/03/2019 Findings: Right middle lobe heterogeneous opacities persist. No new airspace disease. No pleural effusion or pneumothorax. Stable cardiomediastinal silhouette. Impression: 1. No change in right basilar pulmonary opacities. Dictated by: Dictated on workstation # [id number]
[2019-12-04] MEDS ORDERED: LEVOTHYROXINE 75 MCG (LEVOTHROID) TABLET PO NR (08:15)
[2019-12-04] MEDS ORDERED: fluCOnazole (DIFLUCAN) 100 MG TAB PO SCH (08:30)
--- NOTE | 2019-12-04 08:58 | History & Physical-Hospitalist ---
History of Present Illness HPI/Chief Complaint Pt is a 59yoCF with a PMH of hypothyroidism and [place]'s disease who presented to the ER due to her chest pounding. She states she has had "bronchitis" off and on since this past fall and it started again a few weeks ago. She left work early yesterday due to her symptoms from her cold and when she went home and laid down she felt that her chest was pounding which prompted her to seek evaluation in the ER. She was found to be in a-fib with RVR. She was mildly hypotensive so was started on fluids and digoxin and ultimately a cardizem gtt when blood pressures were uimproved. Overnight she converted back to sinus rhythm and was titrated off the cardizem gtt. Unfortunately her troponin went from negative to 1.[address] English has seen her and recommended a cardiac cath but patient would prefer evaluation by Dr Meléndez as that is who her sees. Her only other concern at this time is vaginal irritation and is requesting Diflucan. Date Seen 12/04/19 Time Seen by a Provider: 08:38 Attending Physician Dee Hanson MD PCP Krystin Hay MD Referring Physician CALOS ENGLISH MD Date of Admission Dec 03, 2019 at 16:00 Home Medications & Allergies Home Medications Reviewed patient Home Medication Reconciliation performed by pharmacy medication reconciliations motion study technician and/or nursing. Patients Allergies have been reviewed. Allergies Allergies Coded Allergies Sulfa (Sulfonamide Antibiotics) (Unverified Allergy, Unknown, 12/03/19) Past Tdxivos-Uqyhey-Bpvqfl Hx Past Med/Social Hx: Reviewed Nursing Past Med/Soc Hx Patient Social History Marrital Status: Employed/Student: employed Alcohol Use: Regular Use Alcohol Beverage of Choice: Wine Recreational Drug Use: No Smoking Status: Never a Smoker 2nd Hand Smoke Exposure: No Recent Foreign Travel: No Contact w/other who traveled: No Recent Hopitalizations: No Recent Infectious Disease Expo: No Past Medical History Surgeries: Hysterectomy Cardiac: High Cholesterol Reproductive: No Female Reproductive Disorders: Menstrual Problems Hysterectomy Genitourinary: UTI-Chronic Gastrointestinal: Chronic Constipation Endocrine: Adrenal Disease, Hypothyroidsim History of Blood Disorders: No Adverse Reaction to Blood Perez: No Review of Systems Constitutional: see HPI Respiratory: cough, short of breath Cardiovascular: chest pain; No Hx of Intervention; palpitations Gastrointestinal: no symptoms reported Genitourinary: no symptoms reported Musculoskeletal: no symptoms reported Skin: no symptoms reported Psychiatric/Neurological: No Symptoms Reported Physical Exam Physical Exam Vital Signs Vital Signs - First Documented 12/03/19 15:18 Temp 36.3 Pulse 189 Resp 24 B/P (MAP) 83/59 (67) Pulse Ox 96 O2 Delivery Room Air Capillary Refill : Less Than 3 Seconds Height, Weight, BMI Height: '" Weight: 120lbs. oz. 54.996696de; 20.97 BMI Method: General Appearance: No Apparent Distress, WD/WN HEENT: Moist Mucous Membranes; No Scleral Icterus (L), No Scleral Icterus (R) Neck: Normal Inspection, Supple Respiratory: Lungs Clear, No Accessory Muscle Use, No Respiratory Distress Cardiovascular: Regular Rate, Rhythm, No JVD, No Murmur Gastrointestinal: Normal Bowel Sounds, Non Tender, Soft Extremity: Normal Capillary Refill, No Calf Tenderness Neurologic/Psychiatric: Alert, Oriented x3, Normal Mood/Affect Skin: Normal Color, Warm/Dry Results Results/Procedures Labs Patient resulted labs reviewed. Imaging: Reviewed Imaging Report Assessment/Plan Admission Diagnosis Atrial Fibrillation with RVR NSTEMI Admission Status: Inpatient Order (span 2 midnights) Reason for Inpatient Admission: IV cardizem, likely needs a cath Assessment and Plan Atrial Fibrillation with RVR NSTEMI Now off cardizem gtt Echo being done while I was at bedside Cardiology consulted appreciate recs Keep NPO for possible cath CAP Continue Rocephin and Azithro Not severe sepsis, lactic acidosis and hypotension due to atrial fibrillation Await cultures Pulm consulted, appreciate recs Avel's Disease BP improved- will avoid stress dose for now but low threshold for it Continue home steroids HLD Continue statin when med rec available Vaginal Candidiasis Diflucan ordered Diagnosis/Problems Diagnosis/Problems (1) [place] disease Status: Chronic (2) Hypothyroidism Status: Chronic Qualifiers: Hypothyroidism type: unspecified Qualified Codes: E03.9 - Hypothyroidism, unspecified (3) Atrial fibrillation with rapid ventricular response Status: Acute (4) Pneumonia Status: Acute Qualifiers: Pneumonia type: due to unspecified organism Laterality: unspecified latera lity Lung location: unspecified part of lung Qualified Codes: J18.9 - Pneumonia, unspecified organism Clinical Quality Measures DVT/VTE Risk/Contraindication: Risk Factor Score Per Nursin RFS Level Per Nursing on Admit: 4+=Very High Copy Copies To 1: KRYSTIN HAY MD, KATELYN M MD Dec 04, 2019 08:58
[2019-12-04] MEDS: PANTOPRAZOLE 40 MG (PROTONIX) TAB PO SCH (09:10)
[2019-12-04 09:51] LABS: FREE T4 (FREE THYROXINE) 0.9 NG/DL (0.70-1.48)
[2019-12-04] MEDS ORDERED: CNC1KV INJ (10:36)
[2019-12-04] MEDS ORDERED: DEXT15CA28 PO (10:36)
[2019-12-04] MEDS ORDERED: NFIPRATRNS NS (10:36)
[2019-12-04] MEDS ORDERED: HYDR5TAB8 PO (10:36)
[2019-12-04] MEDS ORDERED: LEVO75TA PO (10:36)
[2019-12-04] MEDS ORDERED: BENZ200C51 PO (10:36)
[2019-12-04] MEDS ORDERED: ROSU10TA22 PO (10:36)
[2019-12-04] MEDS ORDERED: HYDR5TAB PO (10:36)
[2019-12-04] MEDS ORDERED: ESTR1TAB24 PO (10:36)
[2019-12-04] MEDS ORDERED: FLDR.1T PO (10:36)
[2019-12-04] MEDS ORDERED: FLUC100T6 PO (10:36)
--- NOTE | 2019-12-04 10:36 | NUR ---
PATIENT HAD HER MEDICATION BOTTLES WITH HER EXCEPT FOR HER NASAL SPRAY, B12 INJECTIONS, AND OTC VITAMINS. HER HYDROCORTISONE WAS FILLED 1-4-20 5MG TABS 3.5 TABS IN MORNING AND 1 OR 2 IN THE AFTERNOON. SHE STATES SHE TAKES 2 AM AND 1.5 AT 4PM. SHE STATES SHE DOES THE B12 INJECTIONS EVERY TWO WEEKS. SHE TAKES THE FOLLOWING OTC: [employer] DAILY POTASSIUM DAILY VITAMIN D DAILY VITAMIN E DAILY. Addendum: 12/04/19 at 1042 by ERNESTO ROTH [facility] SHE ALSO HAS ROBITUSSIN CAPSULES SHE WAS TAKING OTC.
[2019-12-04] MEDS ORDERED: VITA-240 PO (10:40)
[2019-12-04] MEDS ORDERED: CHOL200025 PO (10:40)
[2019-12-04] MEDS ORDERED: POTA99TA21 PO (10:40)
[2019-12-04] MEDS ORDERED: MULT1TAB69 PO (10:40)
[2019-12-04] MEDS ORDERED: LIDOCAINE 1% INJ 20 ML 20 ML VIAL ONE (13:08)
[2019-12-04] MEDS ORDERED: HEParin (CATH LAB) 2,000 ML IV ONE (13:08)
[2019-12-04] MEDS ORDERED: cefTRIAXone 1,000 MG/SWFI 10 ML IV PUSH IV SCH ×2 (16:00)
[2019-12-04] MEDS ORDERED: fentaNYL INJECTION 100 MCG/2 ML AMP ONE (16:08)
[2019-12-04] MEDS ORDERED: MIDAZOLAM 5 MG/5 ML (VERSED) VIAL ONE (16:08)
[2019-12-04] MEDS ORDERED: AZITHROMYCIN 500 MG/NS 250 ML IVPB IV SCH ×2 (16:30)
[2019-12-04] MEDS ORDERED: methylPREDNISolone 125 MG (Solu-MEDROL) VIAL ONE (17:06)
[2019-12-04] MEDS ORDERED: diphenhydrAMINE 50 MG/ML INJ (BENADRYL) ONE (17:06)
--- NOTE | 2019-12-04 17:07 | NUR ---
PT LEFT FLOOR VIA BED W/ SAUSAGE GRINDER STAFF.
[2019-12-04] MEDS ORDERED: NS IV 1000 ML 1,000 ML ONE (17:09)
[2019-12-04] MEDS: dilTIAZem DRIP 125 MG/125 ML DRIP IV SCH (17:10)
[2019-12-04] MEDS ORDERED: meTOprolol 5 MG/5 ML (LOPRESSOR) VIAL ONE (17:46)
[2019-12-04] MEDS ORDERED: ENALAPRILAT 1.25 MG/1 ML (VASOTEC) 1 ML VIAL IV ONE (17:46)
[2019-12-04] MEDS ORDERED: PATIENT MAY USE OWN MEDS, ALL PO SCH (18:30)
--- NOTE | 2019-12-04 18:40 | NUR ---
PT BACK TO FLOOR VIA BED W/ ORAL AND MAXILLOFACIAL SURGEON STAFF.
--- NOTE | 2019-12-04 18:41 | Progress Note - Cardiology ---
Cardiology SOAP Progress Note Subjective: No cp or syncope Shortness of breath improved Has cough productive of small quantities of yellowish sputum No leg swelling No n/v/d Objective: I&O/Vital Signs 12/04/19 12/04/19 12/04/19 12/04/19 07:00 07:00 08:00 08:00 Pulse 70 68 74 Resp 21 20 B/P (MAP) 137/83 (101) 148/92 (110) Pulse Ox 95 97 O2 Delivery Room Air Room Air Room Air 12/04/19 12/04/19 12/04/19 12/04/19 08:28 09:00 10:00 11:00 Temp 37.0 Pulse 75 65 86 Resp 20 21 12 B/P (MAP) 167/101 (123) 157/118 (131) 142/78 (99) Pulse Ox 95 96 95 O2 Delivery Room Air Room Air Room Air 12/04/19 12/04/19 12/04/19 12/04/19 12:00 12:00 12:09 12:20 Temp 36.5 Pulse 70 83 Resp 16 B/P (MAP) 146/85 (105) Pulse Ox 95 O2 Delivery Room Air Room Air 12/04/19 12/04/19 12/04/19 12/04/19 13:00 14:00 15:00 15:30 Temp 36.7 Pulse 71 70 67 Resp 16 10 20 B/P (MAP) 163/96 (118) 180/112 (134) 169/97 (121) Pulse Ox 95 96 95 O2 Delivery Room Air Room Air Room Air 12/04/19 12/04/19 12/04/19 15:42 16:00 17:00 Pulse 78 73 Resp 21 B/P (MAP) 162/97 (118) 156/106 (123) Pulse Ox 95 94 O2 Delivery Room Air Room Air Room Air 12/04/19 00:00 Intake Total 3010 ml Balance 3010 ml Weight (Pounds): 120 Weight (Calculated Kilograms): 54.577252 Constitutional: AAO x 3, well-developed, well-nourished Respiratory: No accessory muscle use; other (good air entry, basal coarse crackles, scattered rhonchi over large airways) Cardiovascular: regular rate-rhythm, S1 and S2, systolic murmur (faint LISE at card ase) Gastrointestional: No tender; soft; No guarding, No rebound; audible bowel deepak nds Extremities: No clubbing, No cyanosis, No significant edema Neurologic/Psychiatric: oriented x 3, other (moves all limbs equally) Skin: No rash on exposed areas, No ulcerations on exposed areas Results/Procedures: Labs Laboratory Tests 12/03/19 21:55: Troponin I 1.677*H 12/04/19 03:03: Troponin I 1.847*H, White Blood Count 11.7H, Red Blood Count 3.92L, Hemoglobin 12.3, Hematocrit 38, Mean Corpuscular Volume 96, Mean Corpuscular Hemoglobin 31, Mean Corpuscular Hemoglobin Concent 33, Red Cell Distribution Width 13.4, Platelet Count 194, Mean Platelet Volume 10.6H, Neutrophils (%) (Auto) 95H, Lymphocytes (%) (Auto) 4L, Monocytes (%) (Auto) 1, Eosinophils (%) (Auto) 0, Basophils (%) (Auto) 0, Neutrophils # (Auto) 11.2H, Lymphocytes # (Auto) 0.4L, Monocytes # (Auto) 0.2, Eosinophils # (Auto) 0.0, Basophils # (Auto) 0.0, Sodium Level 141, Potassium Level 3.7, Chloride Level 112#H, Carbon Dioxide Level 19L, Anion Gap 10, Blood Urea Nitrogen 8, Creatinine 0.60, Estimat Glomerular Filtration Rate > 60, BUN/Creatinine Ratio 13, Glucose Level 147H, Calcium Level 7.3L, Phosphorus Level 2.5, Magnesium Level 1.8, Triglycerides Level 78, Cholesterol Level 132, LDL Cholesterol Direct 19, VLDL Cholesterol 16, HDL Cholesterol 83H, Thyroid Stimulating Hormone (TSH) 0.34L, Free Thyroxine 0.90 Microbiology 12/03/19 Influenza Types A,B Antigen (JHONATAN) - Final, Complete 12/03/19 Blood Culture - Preliminary, Resulted No growth Laboratory Tests 12/03/19 15:25 12/04/19 03:03 A/P: Assessment: Pneumonia with sepsis and septic shock (presented with low bp on 12/03/19) PAF with RVR at presentation on 12/03/19, currently NSR Mild troponin elevation due to transient hypotension and PAF with RVR, type-2 SD Card cath of 12/04/19: normal coronaries, normal LVEF (60%) Echo of 12/04/19: LVEF 60-65%, RVSP 23 mmHg Chronic steroid therapy, reportedly for [place]'s disease Hypertension H/o hypothyroidism, currently borderline hyperthyroid (probably iatrogenic) Plan: * Beta-ya for hypertension and ventricular rate control * Apixaban for stroke prophylaxis. D/c Lovenox * D/c ASA. No CAD * Monitor labs * I had a detailed discussion with her and her this am, and discussed cath results with her this pm CARMELLA RAMIREZ MD FACP FACC CCDS Dec 04, 2019 18:41
[2019-12-04] MEDS ORDERED: meTOprolol SUCCINATE 100 MG (TOPROL XL) TAB PO ONE ×2 (18:45→22:33)
--- NOTE | 2019-12-04 20:47 | CARDIAC CATHETERIZATION ---
DATE OF SERVICE: 12/03/2019 CARDIAC CATHETERIZATION REPORT The patient is a 59-year-old lady who was hospitalized with pneumonia and sepsis. She had presented with somewhat low blood pressure and atrial fibrillation with rapid ventricular response. Her troponin was subsequently elevated, giving rise to suspicion of acute [place]. Informed consent was obtained for cardiac catheterization. DESCRIPTION OF PROCEDURE: She was brought to the cardiac catheterization laboratory in a fasting state. Right groin was prepared and draped in the usual sterile fashion. Lidocaine 1% for local anesthesia. Modified Seldinger technique was used to advance a 5-Bolivian sheath in right femoral artery, 5-Bolivian JL4 catheter for left coronary angiography, 5-Bolivian JR4 catheter for right coronary angiography, 5-Bolivian pigtail catheter was used for left heart catheterization and left ventricular angiography. Pigtail catheter was removed. Angiography of the right femoral artery was carried out through the sheath. Mynx was used to achieve hemostasis. She tolerated the procedure well. HEMODYNAMICS: Left ventricular end-diastolic pressure following coronary angiography was 17 mmHg. There is no significant pressure gradient on pullback across the aortic valve. Ascending aortic pressure was 168/85 with a mean of 120 mmHg. CORONARY ANGIOGRAPHY: Left main coronary artery, left anterior descending artery, left circumflex artery, right coronary artery are angiographically normal. LEFT VENTRICULAR ANGIOGRAPHY: Left ventricular angiography was carried out in the right anterior oblique projection. Global left ventricular systolic function is normal. No regional wall motion abnormality was seen. Left ventricular ejection fraction approximately 60%. CONCLUSIONS: 1. Angiographically normal coronary arteries. 2. Normal global left ventricular systolic function with ejection fraction approximately 60%. 3. Left ventricular end-diastolic pressure is 17 mmHg. DISCUSSION AND RECOMMENDATIONS: Based on results of the study, troponin elevation does not appear to be of coronary origin. Continuing risk factor modification is advised. Job ID: [id number] DocumentID: [id number] Dictated Date: 12/04/2019 18:33:33 [employer] Date: 12/04/2019 20:46:05 Dictated By: CARMELLA RAMIREZ MD, MA, FACP, FACC,
[2019-12-04] MEDS: APIXABAN 5 MG (ELIQUIS) TABLET PO SCH (22:39)
[2019-12-05] VITALS (8 sets, daily range): BP systolic 133–174; BP diastolic 84–100
[2019-12-05 03:45] LABS: BASOPHILS % (AUTO) 0 % (0-10); EOSINOPHILS % (AUTO) 0 % (0-10); HEMATOCRIT 34 % (35-52); HEMOGLOBIN 10.8 G/DL (11.5-16.0); LYMPHOCYTES # (AUTO) 0.7 X 10^3 (1.0-4.0); LYMPHOCYTES % (AUTO) 7 % (12-44); MEAN CORPUSCULAR HEMOGLOBIN 32 PG (25-34); MEAN CORPUSCULAR HGB CONC 32 G/DL (32-36); MEAN CORPUSCULAR VOLUME 99 FL (80-99); MEAN PLATELET VOLUME 10.1 FL (7.4-10.4); MONOCYTES # (AUTO) 0.7 X 10^3 (0.0-1.0); MONOCYTES % (AUTO) 7 % (0-12); NEUTROPHILS # (AUTO) 8.4 X 10^3 (1.8-7.8); NEUTROPHILS % (AUTO) 86 % (42-75); PLATELET COUNT 182 10^3/uL (130-400); RED CELL DISTRIBUTION WIDTH 14.4 % (10.0-14.5); WHITE BLOOD COUNT 9.8 10^3/uL (4.3-11.0)
[2019-12-05 04:10] LABS: BUN/CREATININE RATIO 15; CALCIUM 7.1 MG/DL (8.5-10.1); CARBON DIOXIDE 20 MMOL/L (21-32); CHLORIDE 116 MMOL/L (98-107); CREATININE SERUM 0.67 MG/DL (0.60-1.30); GFR ESTIMATED > 60; GLUCOSE 163 MG/DL (70-105); MAGNESIUM 1.9 MG/DL (1.6-2.4); PHOSPHORUS 2.4 MG/DL (2.3-4.7); POTASSIUM 3.9 MMOL/L (3.6-5.0); SODIUM 143 MMOL/L (135-145)
[2019-12-05] MEDS: VASOPRESSIN INJECTION 20 UNIT in NORMAL SALINE 100 ML IV SCH (04:23)
[2019-12-05] MEDS: NOREPINEPHRINE 4 MG/250 ML 250 ML IV SCH (04:24)
[2019-12-05] MEDS: NS W/KCL 20 MEQ/L 1,000 ML IV SCH ×2 (04:24→05:24)
[2019-12-05] MEDS: POTASSIUM CL 10MEQ/50ML IVPB 50 ML IV SCH (04:50)
[2019-12-05] MEDS: MAGNESIUM 1 GM/100 ML IVPB 100 ML IV SCH (04:50)
[2019-12-05] MEDS: KCL 20 MEQ TAB (K-DUR) PO SCH (04:51)
[2019-12-05] MEDS ORDERED: hydrALAZINE (APESOLINE) 20 MG/ML VIAL IV PRN (05:00)
--- NOTE | 2019-12-05 05:25 | Pulmonary Progress Note ---
Subjective Time Seen by a Provider: 05:22 Sepsis Event Evaluation Height, Weight, BMI Height: '" Weight: 120lbs. oz. 54.859700tf; 20.97 BMI Method: Focused Exam Lactate Level 12/03/19 16:00: Lactic Acid Level 2.12*H 12/03/19 17:52: Lactic Acid Level 1.26 Exam Exam Vital Signs Date Time Temp Pulse Resp B/P (MAP) Pulse Ox O2 Delivery O2 Flow Rate FiO2 12/05/19 04:23 36.6 12/05/19 04:13 Room Air 12/05/19 01:00 60 12/05/19 00:36 Room Air 12/05/19 00:34 36.4 12/04/19 22:00 59 13 164/98 (120) 98 Room Air 12/04/19 21:30 57 26 166/100 (122) 98 Room Air 12/04/19 21:00 57 13 167/95 (119) 98 Room Air 12/04/19 20:30 56 14 163/97 (119) 98 Room Air 12/04/19 20:00 67 18 160/91 (114) 96 Room Air 12/04/19 20:00 Room Air 12/04/19 19:30 61 16 158/92 (114) 95 Room Air 12/04/19 19:15 57 17 155/92 (113) 96 Room Air 12/04/19 19:07 36.1 12/04/19 19:00 62 17 155/92 (113) 95 Room Air 12/04/19 19:00 62 12/04/19 18:45 64 15 151/92 (111) 93 Room Air 12/04/19 18:30 69 151/93 (112) Room Air 12/04/19 17:00 73 21 156/106 (123) 94 Room Air 12/04/19 16:00 78 162/97 (118) 95 Room Air 12/04/19 15:42 Room Air 12/04/19 15:30 36.7 12/04/19 15:00 67 20 169/97 (121) 95 Room Air 12/04/19 14:00 70 10 180/112 (134) 96 Room Air 12/04/19 13:00 71 16 163/96 (118) 95 Room Air 12/04/19 12:20 83 2/13/20 12:09 36.5 12/04/19 12:00 Room Air 12/04/19 12:00 70 16 146/85 (105) 95 Room Air 12/04/19 11:00 86 12 142/78 (99) 95 Room Air 12/04/19 10:00 65 21 157/118 (131) 96 Room Air 12/04/19 09:00 75 20 167/101 (123) 95 Room Air 12/04/19 08:28 37.0 12/04/19 08:00 Room Air 12/04/19 08:00 74 20 148/92 (110) 97 Room Air 12/04/19 07:00 68 21 137/83 (101) 95 Room Air 12/04/19 07:00 70 12/04/19 06:00 69 17 140/92 (108) 96 Room Air I & O 12/05/19 07:00 Intake Total 2365 ml Output Total 450 ml Balance 1915 ml Height & Weight Height: '" Weight: 120lbs. oz. 54.292676nf; 20.97 BMI Method: General Appearance: No Apparent Distress, Anxious HEENT: PERRL/EOMI, Pharynx Normal, Moist Mucous Membranes Neck: Full Range of Motion, Normal Inspection Respiratory: No Accessory Muscle Use, Crackles, Decreased Breath Sounds, Rales, Rhonci, Wheezing Cardiovascular: No Edema, Irregularly Irregular, Tachycardia Capillary Refill: Less Than 3 Seconds Extremity: Normal Capillary Refill, Normal Inspection, No Pedal Edema Neurologic/Psychiatric: Alert, Oriented x3 Skin: Normal Color, Warm/Dry Results Lab Laboratory Tests 12/03/19 15:25 12/04/19 03:03 12/05/19 03:10 Assessment/Plan Assessment/Plan Atrial fibrillation with RVR - No sinsus -S/p cath per Dr. Tameka Murphy gtt - is now off -Cardiology following Pneumonia - rocephin, azithromycin NSTEMI -Cardiology following Hypertension [place] disease, has been on hydrocortisone as an outpatient Hypothyroid -Synthroid To 4th floor when ok with cardiology. ZENIA SANTIAGO DO Dec 05, 2019 05:25
--- NOTE | 2019-12-05 07:16 | Diagnostic Imaging Report ---
CHEST 1 VIEW, AP/PA ONLY INDICATION: Dyspnea COMPARISON: 12/04/2019 FINDINGS: Progression versus redistribution of moderate size right pleural effusion. Perihilar airspace and interstitial opacities have increased. No pneumothorax. Heart is normal in size. IMPRESSION: 1. Progression of right pleural effusion which is now moderate in size. 2. Worsening of bilateral pulmonary opacities. Dictated by: Dictated on workstation # [id number]
[2019-12-05] MEDS: PANTOPRAZOLE 40 MG (PROTONIX) TAB PO SCH (08:14)
[2019-12-05] MEDS: APIXABAN 5 MG (ELIQUIS) TABLET PO SCH (08:16)
[2019-12-05] MEDS ORDERED: AMLO10TA7 PO (08:26)
[2019-12-05] MEDS ORDERED: LISI-552 PO (08:26)
[2019-12-05] MEDS ORDERED: AZIT250T12 PO (08:26)
[2019-12-05] MEDS ORDERED: APIX5TAB PO (08:26)
[2019-12-05] MEDS ORDERED: MTP100TCR PO (08:26)
[2019-12-05] MEDS ORDERED: CEPH-507 PO (08:26)
--- NOTE | 2019-12-05 08:29 | Discharge Inst-Simple/Standard ---
Discharge Inst-Standard Patient Instructions/Follow Up Plan of Care/Instructions/FU: Please continue to take your medications as written. Please follow up with Dr Hay next week. Please follow up with Dr Meléndez as scheduled Activity as Tolerated: Yes Discharge Diet: Cardiac Diet Return to The Hospital For: Chest pain, palpitations, shortness of breath, worsening cough, fever, or if you feel you are getting worse. JADEN ZAPATA MD Dec 05, 2019 08:29
--- NOTE | 2019-12-05 08:39 | Discharge Summary ---
Diagnosis/Chief Complaint Date of Admission Dec 03, 2019 at 16:00 Date of Discharge Discharge Date: Dec 05, 2019 Admission Diagnosis Atrial Fibrillation with RVR NSTEMI Primary Care Arian Hay MD Discharge Diagnosis (1) [place] disease Status: Chronic (2) Hypothyroidism Status: Chronic (3) Atrial fibrillation with rapid ventricular response Status: Acute (4) Pneumonia Status: Acute Discharge Summary Discharge Physical Exam Allergies: Coded Allergies: Sulfa (Sulfonamide Antibiotics) (Unverified Allergy, Unknown, 12/03/19) Vitals & I&Os Vital Signs Date Time Temp Pulse Resp B/P (MAP) Pulse Ox O2 Delivery O2 Flow Rate FiO2 12/05/19 08:00 67 12 154/90 (111) 95 Room Air 12/05/19 07:12 36.5 General Appearance: No Apparent Distress, WD/WN Respiratory: Lungs Clear, No Respiratory Distress Cardiovascular: Regular Rate, Rhythm, No Murmur Hospital Course Pt was admitted due to atrial fibrillation with RVR which was new onset for her. 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 CXR revealed a pneumonia and she was treated with Rocephin and Azithromycin for CAP coverage. She was discharged home in stable condition to complete antibiotic course. She was continued on Eliquis for stroke prophylaxis and metoprolol for rate control. She is to follow up with Dr Hay in [address] Meléndez as scheduled. Labs (last 24 hrs) Laboratory Tests 12/05/19 03:10: White Blood Count 9.8, Red Blood Count 3.41L, Hemoglobin 10.8L, Hematocrit 34L, Mean Corpuscular Volume 99, Mean Corpuscular Hemoglobin 32, Mean Corpuscular Hemoglobin Concent 32, Red Cell Distribution Width 14.4, Platelet Count 182, Mean Platelet Volume 10.1, Neutrophils (%) (Auto) 86H, Lymphocytes (%) (Auto) 7L , Monocytes (%) (Auto) 7, Eosinophils (%) (Auto) 0, Basophils (%) (Auto) 0, Neutrophils # (Auto) 8.4H, Lymphocytes # (Auto) 0.7L, Monocytes # (Auto) 0.7, Eosinophils # (Auto) 0.0, Basophils # (Auto) 0.0, Sodium Level 143, Potassium Level 3.9, Chloride Level 116H, Carbon Dioxide Level 20L, Anion Gap 7, Blood Urea Nitrogen 10, Creatinine 0.67, Estimat Glomerular Filtration Rate > 60, BUN/Creatinine Ratio 15, Glucose Level 163H, Calcium Level 7.1L, Phosphorus Level 2.4, Magnesium Level 1.9 Microbiology 12/03/19 Influenza Types A,B Antigen (JHONATAN) - Final, Complete 12/03/19 Blood Culture - Preliminary, Resulted No growth Patient resulted labs reviewed. Pending Labs Laboratory Tests 12/05/19 03:10: White Blood Count 9.8, Red Blood Count 3.41, Hemoglobin 10.8, Hematocrit 34, Mean Corpuscular Volume 99, Mean Corpuscular Hemoglobin 32, Mean Corpuscular Hemoglobin Concent 32, Red Cell Distribution Width 14.4, Platelet Count 182, Mean Platelet Volume 10.1, Neutrophils (%) (Auto) 86, Lymphocytes (%) (Auto) 7, Monocytes (%) (Auto) 7, Eosinophils (%) (Auto) 0, Basophils (%) (Auto) 0, Neutrophils # (Auto) 8.4, Lymphocytes # (Auto) 0.7, Monocytes # (Auto) 0.7, Eosinophils # (Auto) 0.0, Basophils # (Auto) 0.0, Sodium Level 143, Potassium Level 3.9, Chloride Level 116, Carbon Dioxide Level 20, Anion Gap 7, Blood Urea Nitrogen 10, Creatinine 0.67, Estimat Glomerular Filtration Rate > 60, BUN/Creatinine Ratio 15, Glucose Level 163, Calcium Level 7.1, Phosphorus Level 2.4, Magnesium Level 1.9 Discussion & Recommendations Discharge Planning: >30 minutes discharge planning Discharge Home Medications: Active Scripts Active Keflex (Cephalexin) 500 Mg Capsule 500 Mg PO BID Lisinopril 20 Mg Tablet 20 Mg PO DAILY Amlodipine Besylate 10 Mg Tablet 10 Mg PO DAILY Metoprolol Succinate 100 Mg Tab.er.24h 100 Mg PO DAILY Eliquis (Apixaban) 5 Mg Tablet 5 Mg PO BID Azithromycin 250 Mg Tablet 250 Mg PO DAILY Reported Vitamin E (Vitamin E (Dl,Tocopheryl Acet)) 400 Unit Capsule 400 Unit PO DAILY Vitamin D3 (Cholecalciferol (Vitamin D3)) 2,000 Unit Tablet 2,000 Unit PO DAILY Potassium (Potassium Gluconate) 99 Mg Tablet 99 Mg PO DAILY Multivitamins (Multivitamin) 1 Each Tablet 1 Tab PO DAILY Cyanocobalamin Injection (Cyanocobalamin) 1,000 Mcg/Ml Inj 1,000 Mcg INJ EVERY 2 WEEKS Robitussin (Dextromethorphan HBr) 15 Mg Capsule 30 Mg PO Q6H PRN Cortef (Hydrocortisone) 5 Mg Tablet 7.5 Mg PO 1600 TAKES 1 & 1/2 (5MG) TABLETS Hydrocortisone 5 Mg Tablet 10 Mg PO DAILY TAKES 2 (5MG) TABLETS Fludrocortisone Acetate 0.1 Mg Tab 0.1 Mg PO DAILY Ipratropium [place] 15 Ml Naspr 1 [place] NS BID Synthroid (Levothyroxine Sodium) 75 Mcg Tablet 75 Mcg PO DAILY Estradiol Tablet (Estradiol) 1 Mg Tablet 1 Mg PO DAILY Crestor (Rosuvastatin Calcium) 10 Mg Tablet 10 Mg PO DAILY Benzonatate 200 Mg Capsule 200 Mg PO Q8H PRN Fluconazole 100 Mg Tablet 100 Mg PO DAILY 5 Days 5 DAY SUPPLY FILLED 11-29-19 Instructions to patient/family Please see electronic discharge instructions given to patient. Clinical Quality Measures DVT/VTE Risk/Contraindication: Risk Factor Score Per Nursin RFS Level Per Nursing on Admit: 4+=Very High Problem Qualifiers (1) Hypothyroidism: Hypothyroidism type: unspecified Qualified Codes: E03.9 - Hypothyroidism, unspecified (2) Pneumonia: Pneumonia type: due to unspecified organism Laterality: unspecified laterality Lung location: unspecified part of lung Qualified Codes: J18.9 - Pneumonia, unspecified organism JADEN ZAPATA MD Dec 05, 2019 08:39
[2019-12-05] MEDS ORDERED: AZITHROMYCIN 250 MG TAB (ZITHROMAX) PO SCH (09:00)
[2019-12-05] MEDS ORDERED: meTOprolol SUCCINATE 100 MG (TOPROL XL) TAB PO SCH (09:00)
[2019-12-05] MEDS ORDERED: lisINopril 20 MG (PRINIVIL) TABLET PO SCH (09:00)
[2019-12-05] MEDS ORDERED: amLODIPine 10 MG (NORVASC) TAB PO SCH (09:00)
--- NOTE | 2019-12-05 10:18 | NUR ---
PROVIDED EDUCATION TO PATIENT ABOUT ELIQUIS. DISCUSSED SIDE EFFECTS (INCLUDING BLEEDING), HOW TO TAKE THE MEDICATION, DRUG AND FOOD INTERACTION. I ANSWERED HER QUESTIONS RELATED TO THE MEDICATION AND ALSO PROVIDED A 30 DAY TRIAL CARD AND COPAY ASSISTANCE CARD.
--- NOTE | 2019-12-05 10:25 | NUR ---
MARCIA PEÑA demonstrates understanding of discharge instructions and accurately returns instructions upon questioning. Copy of Post-Discharge Instructions and Medication Discharge Instructions given to pt. MARCIA PEÑA is able to manage continuing needs after discharge. Patients belongings returned to pt. Skin dry and intact; no breakdown noted. Patient discharged from [facility] on 12/05/19 at 1025. MARCIA PEÑA left floor via wc, accompanied by staff/.
--- NOTE | 2019-12-05 10:42 | Progress Note - Cardiology ---
Cardiology SOAP Progress Note Subjective: No cp or palp or syncope Cough and shortness of breath not resolved, but improved Malaise improved Objective: I&O/Vital Signs 12/04/19 12/05/19 12/05/19 12/05/19 23:00 00:00 00:34 00:36 Temp 36.4 Pulse 60 61 Resp 24 14 B/P (MAP) 160/96 (117) 163/93 (116) Pulse Ox 98 98 O2 Delivery Room Air Room Air Room Air 12/05/19 12/05/19 12/05/19 12/05/19 01:00 01:00 02:00 03:00 Pulse 60 55 59 58 Resp 16 16 16 B/P (MAP) 153/87 (109) 158/89 (112) 152/87 (108) Pulse Ox 95 94 94 O2 Delivery Room Air Room Air Room Air 12/05/19 12/05/19 12/05/19 12/05/19 04:00 04:13 04:23 05:00 Temp 36.6 Pulse 58 56 Resp 18 16 B/P (MAP) 162/92 (115) 174/100 (124) Pulse Ox 94 94 O2 Delivery Room Air Room Air Room Air 12/05/19 12/05/19 12/05/19 12/05/19 06:00 07:00 07:12 08:00 Temp 36.5 Pulse 62 75 Resp 23 B/P (MAP) 133/84 (100) Pulse Ox 94 O2 Delivery Room Air Room Air 12/05/19 08:00 Pulse 67 Resp 12 B/P (MAP) 154/90 (111) Pulse Ox 95 O2 Delivery Room Air 12/05/19 00:00 Intake Total 285 ml Output Total 450 ml Balance -165 ml Weight (Pounds): 120 Weight (Calculated Kilograms): [id number] Condition: DP/PT pulses palpable Device Insertion Site: without hematoma Bruising: mild bruising Constitutional: AAO x 3, well-developed, well-nourished Respiratory: No accessory muscle use; other (good air entry, basal coarse crackles, scattered rhonchi over large airways) Cardiovascular: regular rate-rhythm, S1 and S2, systolic murmur (faint LISE at card ase) Gastrointestional: No tender; soft; No guarding, No rebound; audible bowel sounds Extremities: No clubbing, No cyanosis, No significant edema Neurologic/Psychiatric: oriented x 3, other (moves all limbs equally) Skin: No rash on exposed areas, No ulcerations on exposed areas Results/Procedures: Labs Laboratory Tests 12/05/19 03:10: White Blood Count 9.8, Red Blood Count 3.41L, Hemoglobin 10.8L, Hematocrit 34L, Mean Corpuscular Volume 99, Mean Corpuscular Hemoglobin 32, Mean Corpuscular Hemoglobin Concent 32, Red Cell Distribution Width 14.4, Platelet Count 182, Mean Platelet Volume 10.1, Neutrophils (%) (Auto) 86H, Lymphocytes (%) (Auto) 7L , Monocytes (%) (Auto) 7, Eosinophils (%) (Auto) 0, Basophils (%) (Auto) 0, Neutrophils # (Auto) 8.4H, Lymphocytes # (Auto) 0.7L, Monocytes # (Auto) 0.7, Eosinophils # (Auto) 0.0, Basophils # (Auto) 0.0, Sodium Level 143, Potassium Level 3.9, Chloride Level 116H, Carbon Dioxide Level 20L, Anion Gap 7, Blood Urea Nitrogen 10, Creatinine 0.67, Estimat Glomerular Filtration Rate > 60, BUN/Creatinine Ratio 15, Glucose Level 163H, Calcium Level 7.1L, Phosphorus Level 2.4, Magnesium Level 1.9 Microbiology 12/03/19 Influenza Types A,B Antigen (JHONATAN) - Final, Complete 12/03/19 Blood Culture - Preliminary, Resulted No growth Laboratory Tests 12/03/19 15:25 12/04/19 03:03 12/05/19 03:10 A/P: Assessment: Pneumonia with sepsis and septic shock (presented with low bp on 12/03/19) PAF with RVR at presentation on 12/03/19, currently NSR Mild troponin elevation due to transient hypotension and PAF with RVR, type-2 VT Card cath of 12/04/19: normal coronaries, normal LVEF (60%) Echo of 12/04/19: LVEF 60-65%, RVSP 23 mmHg Chronic steroid therapy, reportedly for Harrison's disease Hypertension H/o hypothyroidism, currently borderline hyperthyroid (probably iatrogenic) Plan: * Beta-ya for hypertension and ventricular rate control * Apixaban for stroke prophylaxis. D/c Lovenox * D/c ASA. No CAD * I discussed her cath findings again with her * I discussed her case with Dr Hanson * Outpt f/u advised CARMELLA RAMIREZ MD FACP FACC [facility] Dec 05, 2019 10:42
--- NOTE | 2019-12-08 07:15 | Physician Query Clarification ---
PQ-Uncertain Diagnosis Admission/Discharge Admission Date: Dec 03, 2019 at 16:00 Discharge Date: Dec 05, 2019 at 10:25 The medical record reflects the following clinical scenario: History/Risk Factors: Hypotension, Chest pounding Clinical Findings: Pneumonia with sepsis and septic shock on 12/03 Treatment: Rocephin, Azithromycin Question: Is [Sepsis and Septic shock] a clinically valid diagnosis? [Sepsis] was documented in the [Cardiology consultation 12/03, progress note 12/05] with no further documentation in the medical record. Please document a response in Progress Note or Discharge Summary. 1. Yes, clinically valid, condition resolved. 2. No, condition ruled out. 3. Other, with explanation of clinical findings. 4. Undetermined, no explanation for clinical findings. PHYSICIAN RESPONSE Diagnosis clinically valid: No, conditon ruled out Please remember a lack of response to the above will prompt a phone page by [facility]/Coding staff. In responding to this query, please exercise your independent professional judgment. The purpose of this communication is to more accurately reflect the complexity of your patients condition. The fact that a question is asked does not imply that any particular answer is desired or expected. Thank you for your timely response to this clarification. Requestors name: [Jane ] Phone # [[phone] ] THIS PHYSICIAN QUERY FORM IS A PERMANENT PART OF THE MEDICAL RECORD ELISABETH PELLETIER Dec 08, 2019 07:15 JADEN ZAPATA MD Dec 11, 2019 10:37
--- OUTSIDE RECORDS SUMMARY | 2019-12-14 08:50 | XMS REPORT | Continuity of Care Document ---
Author Organization Unknown Address Unknown Phone Unavailable Allergies Active Description Code Type Severity Reaction Onset Reported/Identified Relationship to Patient Clinical Status Yes Sulfa (Sulfonamide Antibiotics) [id number] 0491 Drug Allergy Unknown N/A 020 Medications There is no data. Problems Date Dx Coded Attending Type Code Diagnosis Diagnosed By 05/06/2012 Ot 244.9 05/06/2012 Ot 735.0 05/06/2012 Ot V57.1 05/06/2012 Ot V58.69 05/06/2012 Ot V74.8 01/07/2013 Ot V16.0 01/07/2013 Ot V76.51 05/14/2013 DEL MORIN DO Ot 218.9 05/14/2013 DEL MORIN DO C Ot 617.9 05/14/2013 СЕРГЕЙ MORIN DOA C Ot 620.2 12/26/2013 DREW BERGMAN APRN 462 PHARYNGITIS ACUTE 10/05/2014 ANTHONY DYE, ADIA Powell Ot 733.90 11/25/2014 ANTHONY DYE, ADIA Powell Ot 723.1 11/25/2014 ANTHONY DYE, ADIA Powell Ot 723.4 01/18/2016 CANDI STEINBERG DO Ot 255.41 01/18/2016 Ot 735.0 01/18/2016 Ot 754.52 01/18/2016 Ot V72.84 01/18/2016 Ot 626.8 01/18/2016 Ot V72.84 01/18/2016 ASHLEY AG PROOF PLATE MAKER Ot 787.3 01/18/2016 ASHLEY AG [employer]OOF PLATE MAKER Ot 790.6 01/18/2016 ANTHONY DYE, ADIA Powell Ot 573.9 01/18/2016 СЕРГЕЙ MORIN DOA C Ot 218.9 01/18/2016 СЕРГЕЙ MORIN DOA C Ot 791.9 01/18/2016 DEL MORIN DO C Ot V72.6 3 01/18/2016 STEINBERG DO, CANDI L Ot 255.41 01/18/2016 STEINBERG DO, CANDI L Ot 244.9 01/18/2016 STEINBERG DO, CANDI L Ot 255.41 01/18/2016 STEINBERG DO, CANDI L Ot 244.9 01/18/2016 STEINBERG DO, CANDI L Ot 255.41 01/18/2016 ANTHONY DYE, ADIA Powell Ot 785.9 01/18/2016 ANTHONY DYE, ADIA Powell Ot 733.90 01/18/2016 ADIA CRUZ MD Ot 465.9 01/18/2016 ADIA CRUZ MD Ot 723.1 01/18/2016 ADIA CRUZ MD Ot 723.4 01/18/2016 NABEEL AG DO Ot M79.641 01/18/2016 NABEEL AG DO Ot M79.642 02/02/2016 NABEEL AG DO, Ot M79.641 02/02/2016 NABEEL AG DO, Ot M79.642 07/14/2016 NABEEL AG DO Ot Z13.820 ENCOUNTER FOR SCREENING FOR OSTEOPOROSIS 07/25/2016 NABEEL AG DO, Ot Z13.820 ENCOUNTER FOR SCREENING FOR OSTEOPOROSIS 11/21/2019 ADIA CRUZ MD Ot 733.90 BONE CARTILAGE DIS NOS 11/21/2019 ADIA CRUZ MD Ot 465.9 ACUTE URI NOS 11/21/2019 ADIA CRUZ MD Ot 723.1 CERVICALGIA 11/21/2019 ADIA CRUZ MD Ot 723.4 BRACHIAL NEURITIS NOS 11/21/2019 NABEEL AG DO, Ot M79.641 PAIN IN RIGHT HAND 11/21/2019 NABEEL AG DO, Ot M79.642 PAIN IN LEFT HAND 11/21/2019 NABEEL GA DO, Ot Z13.820 ENCOUNTER FOR SCREENING FOR OSTEOPOROSIS 11/25/2019 KRISTEN DYE, KRYSTIN Cruz Ot I63. 9 CEREBRAL INFARCTION, UNSPECIFIED 11/25/2019 KRISTEN DYE, KRYSTIN Cruz Ot I73. 9 PERIPHERAL VASCULAR DISEASE, UNSPECIFIED 12/05/2019 JADEN ZAPATA MD, Ot A41. 9 SEPSIS, UNSPECIFIED ORGANISM 12/05/2019 JADEN ZAPATA MD, Ot B37. 3 CANDIDIASIS OF VULVA AND VAGINA 12/05/2019 JADEN ZAPATA MD, Ot E03. 9 HYPOTHYROIDISM, UNSPECIFIED 12/05/2019 JADEN ZAPATA MD, Ot E27. 1 PRIMARY ADRENOCORTICAL INSUFFICIENCY 12/05/2019 JADEN ZAPATA MD Ot E78. 00 PURE HYPERCHOLESTEROLEMIA, UNSPECIFIED 12/05/2019 JADEN ZAPATA MD, Ot E87. 6 HYPOKALEMIA 12/05/2019 JADEN ZAPATA MD, Ot I48. 0 PAROXYSMAL ATRIAL FIBRILLATION 12/05/2019 JADEN ZAPATA MD, Ot J18. 9 PNEUMONIA, UNSPECIFIED ORGANISM 12/05/2019 JADEN ZAPATA MD, Ot R65. 21 SEVERE SEPSIS WITH SEPTIC SHOCK 12/05/2019 JADEN ZAPATA MD, Ot Z87.440 PERSONAL HISTORY OF URINARY (TRACT) INFE 12/05/2019 JADEN ZAPATA MD, Ot Z90.710 ACQUIRED ABSENCE OF BOTH CERVIX AND UTER 12/09/2019 KRYSTIN PETERSON MD Ot I63. 9 CEREBRAL INFARCTION, UNSPECIFIED 12/09/2019 KRYSTIN PETERSON MD, Ot I73. 9 PERIPHERAL VASCULAR DISEASE, UNSPECIFIED Procedures Code Description [place] [id number] RAFY Ventura (IN-HOUSE) 12/26/2013 [id number] ME ASURE OF CARDIAC SAMPL PRESSURE, L H 12/04/2019 [id number] FL UOROSCOPY OF MULT COR ART USING L OSM 12/04/2019 Results Test Result Range Complete blood count (CBC) with automate d white blood cell (WBC) differential - 12/03/19 15:25 Blood leukocytes automated count (number/volume) 15.1 10*3/uL 4.3-11.0 Blood erythrocytes automated count (number/volume) 4.61 10*6/uL 4.35-5.85 Venous blood hemoglobin measurement (mass/volume) 14.5 g/dL 11.5-16.0 Blood hematocrit (volume fraction) 44 % 35-52 Automated erythrocyte mean corpuscular volume 95 [ foz_us] 80-99 Automated erythrocyte mean corpuscular h emoglobin (mass per erythrocyte) 32 pg 25-34 Automated erythrocyte mean corpuscular h emoglobin concentration measurement (mass/volume) 33 g/dL 32-36 Automated erythrocyte distribution width ratio 13. 4 % 10.0- 14.5 Automated blood platelet count (count/volume) 272 10*3/uL 130-400 Automated blood platelet mean volume measurement 9.9 [foz_us] 7.4-10.4 Automated blood neutrophils/100 leukocytes 84 % 42-75 Automated blood lymphocytes/100 leukocytes 9 % 12-44 Blood monocytes/100 leukocytes 6 % 0-12 Automated blood eosinophils/100 leukocytes 1 % 0-10 Automated blood basophils/100 leukocytes 0 % 0-10 Blood neutrophils automated count (number/volume) 12.7 10*3 1.8-7.8 Blood lymphocytes automated count (number/volume) 1.4 10*3 1.0-4.0 Blood monocytes automated count (number/volume) 0. 9 10*3 0.0-1.0 Automated eosinophil count 0.1 10*3/uL 0 .0-0.3 Automated blood basophil count (count/volume) 0.0 10*3/uL 0.0-0.1 Blood blood smear finding identification by light micr oscopy YES NRG PT panel in platelet poor plasma by coag ulation assay - 12/03/19 15:25 Prothrombin time (PT) in platelet poor plasma by coagu lation assay 13.4 s 12.2-14.7 INR in platelet poor plasma or blood by coagulation as say 1.0 0.8-1.4 Activated partial thromboplastin time (a PTT) in platelet poor plasma bycoagulation assay - 12/03/19 15:25 Activated partial thromboplastin time (a PTT) in platelet poor plasma bycoagulation assay 25 s 24-35 Comprehensive metabolic panel - 12/03/19 15:25 Serum or plasma sodium measurement (moles/volume) 140 mmol/L 135-145 Serum or plasma potassium measurement (moles/volume) 3.5 mmol/L 3.6-5.0 Serum or plasma chloride measurement (moles/volume) 102 mmol/L 98-107 Carbon dioxide 26 mmol/L 21-32 Serum or plasma anion gap determination (moles/volume) 12 mmol/L 5-14 Serum or plasma urea nitrogen measurement (mass/volume ) 14 mg/dL 7-18 Serum or plasma creatinine measurement (mass/volume) 0.80 mg/dL 0.60-1.30 Serum or plasma urea nitrogen/creatinine mass ratio 18 NRG Serum or plasma creatinine measurement w ith calculation of estimated glomerular filtration rate > NRG Serum or plasma glucose measurement (mass/volume) 137 mg/dL 70-105 Serum or plasma calcium measurement (mass/volume) 9.6 mg/dL 8.5-10.1 Serum or plasma total bilirubin measurement (mass/volu me) 0.2 mg/dL 0.1-1.0 Serum or plasma alkaline phosphatase fred surement (enzymatic activity/volume) 68 U/L 40-136 Serum or plasma aspartate aminotransfera se measurement (enzymatic activity/volume) 24 U/L 5-34 Serum or plasma alanine aminotransferase measurement (enzymatic activity/volume) 18 U/L 0-55 Serum or plasma protein measurement (mass/volume) 7.2 g/dL 6.4-8.2 Serum or plasma albumin measurement (mass/volume) 4.3 g/dL 3.2-4.5 CALCIUM CORRECTED 9.4 mg/dL 8.5-10.1 Magnesium - 12/03/19 15:25 Magnesium 2.0 mg/dL 1.6-2.4 Myoglobin, serum - 12/03/19 15:25 Myoglobin, serum 46.9 ng/mL 10.0-92.0 Serum or plasma troponin i.cardiac measu rement (mass/volume) - 12/03/19 15:25 Serum or plasma troponin i.cardiac measurement (mass/v olume) < ng/mL <0.028 Manual absolute plasma cell count - 11/22 12/11 15:25 Blood monocytes/100 leukocytes 6 % NR Manual blood segmented neutrophils/100 leukocytes 85 % NR Manual blood lymphocytes/100 leukocytes 9 % NR Bacterial blood culture - 12/03/19 15:55 Bacterial blood culture NG [facility] Blood lactic acid measurement (moles/vol ume) - 12/03/19 16:00 Blood lactic acid measurement (moles/volume) 2.12 mmol/L 0.50-2.00 Influenza virus A and B antigen detectio n - 12/03/19 16:00 FLU RESULT NEGATIVE FOR INFLUENZA A AND B ANTIGENS BY IA NR Bacterial blood culture - 12/03/19 16:00 Bacterial blood culture NG NRG Complete urinalysis with reflex to cultu re - 12/03/19 16:11 Urine color determination YELLOW NRG Urine clarity determination CLEAR NR G Urine pH measurement by test strip 6.5 5-9 Specific gravity of urine by test strip 1.010 1.016-1.022 Urine protein assay by test strip, semi-quantitative NEGATIVE NEGATIVE Urine glucose detection by automated test strip NE GATIVE NEGATIVE Erythrocytes detection in urine sediment by light micr oscopy NEGATIVE NEGATIVE Urine ketones detection by automated test strip TR BRIAN NEGATIVE Urine nitrite detection by test strip NEGATIVE NEGATIVE Urine total bilirubin detection by test strip NEGA TIVE NEGATIVE Urine urobilinogen measurement by automated test strip (mass/volume) 0.2 mg/dL < = 1.0 Urine leukocyte esterase detection by dipstick NEG ATIVE NEGATIVE Automated urine sediment erythrocyte cou nt by microscopy (number/high power field) [HPF] NRG Automated urine sediment leukocyte count by microscopy (number/high power field) RARE NRG Bacteria detection in urine sediment by light microsco py TRACE NRG Squamous epithelial cells detection in u rine sediment by light microscopy 5-10 NRG Crystals detection in urine sediment by light microsco py NONE NRG Casts detection in urine sediment by light microscopy PRESENT NRG Mucus detection in urine sediment by light microscopy NEGATIVE NRG Complete urinalysis with reflex to culture NO NRG Hyaline casts detection in urine sediment by light ramesh roscopy 5-10 NRG Urine drug screening test - 12/03/19 16: 11 Urine phencyclidine detection by screening method NEGATIVE NEGATIVE Urine benzodiazepines detection by screening method NEGATIVE NEGATIVE Urine cocaine detection NEGATIVE NEGATI VE Urine amphetamines detection by screening method N EGATIVE NEGATIVE Urine methamphetamine detection by screening method NEGATIVE NEGATIVE Urine cannabinoids detection by screening method N EGATIVE NEGATIVE Urine opiates detection by screening method NEGATI VE NEGATIVE Urine barbiturates detection NEGATIVE N EGATIVE Screening urine tricyclic antidepressants detection NEGATIVE NEGATIVE Urine methadone detection by screening method NEGA TIVE NEGATIVE Urine oxycodone detection NEGATIVE NEGA TIVE Urine propoxyphene detection NEGATIVE N EGATIVE Blood lactic acid measurement (moles/vol ume) - 12/03/19 17:52 Blood lactic acid measurement (moles/volume) 1.26 mmol/L 0.50-2.00 Serum or plasma troponin i.cardiac measu rement (mass/volume) - 12/03/19 21:55 Serum or plasma troponin i.cardiac measurement (mass/v olume) 1.677 ng/mL <0.028 Complete blood count (CBC) with automate d white blood cell (WBC) differential - 12/04/19 03:03 Blood leukocytes automated count (number/volume) 11.7 10*3/uL 4.3-11.0 Blood erythrocytes automated count (number/volume) 3.92 10*6/uL 4.35-5.85 Venous blood hemoglobin measurement (mass/volume) 12.3 g/dL 11.5-16.0 Blood hematocrit (volume fraction) 38 % 35-52 Automated erythrocyte mean corpuscular volume 96 [ foz_us] 80-99 Automated erythrocyte mean corpuscular h emoglobin (mass per erythrocyte) 31 pg 25-34 Automated erythrocyte mean corpuscular h emoglobin concentration measurement (mass/volume) 33 g/dL 32-36 Automated erythrocyte distribution width ratio 13. 4 % 10.0- 14.5 Automated blood platelet count (count/volume) 194 10*3/uL 130-400 Automated blood platelet mean volume measurement 10.6 [foz_us] 7.4-10.4 Automated blood neutrophils/100 leukocytes 95 % 42-75 Automated blood lymphocytes/100 leukocytes 4 % 12-44 Blood monocytes/100 leukocytes 1 % 0-12 Automated blood eosinophils/100 leukocytes 0 % 0-10 Automated blood basophils/100 leukocytes 0 % 0-10 Blood neutrophils automated count (number/volume) 11.2 10*3 1.8-7.8 Blood lymphocytes automated count (number/volume) 0.4 10*3 1.0-4.0 Blood monocytes automated count (number/volume) 0. 2 10*3 0.0-1.0 Automated eosinophil count 0.0 10*3/uL 0 .0-0.3 Automated blood basophil count (count/volume) 0.0 10*3/uL 0.0-0.1 Whole blood basic metabolic panel - 11/22 01/08 03:03 Serum or plasma sodium measurement (moles/volume) 141 mmol/L 135-145 Serum or plasma potassium measurement (moles/volume) 3.7 mmol/L 3.6-5.0 Serum or plasma chloride measurement (moles/volume) 112 mmol/L 98-107 Carbon dioxide 19 mmol/L 21-32 Serum or plasma anion gap determination (moles/volume) 10 mmol/L 5-14 Serum or plasma urea nitrogen measurement (mass/volume ) 8 mg/dL 7-18 Serum or plasma creatinine measurement (mass/volume) 0.60 mg/dL 0.60-1.30 Serum or plasma urea nitrogen/creatinine mass ratio 13 NRG Serum or plasma creatinine measurement w ith calculation of estimated glomerular filtration rate > NRG Serum or plasma glucose measurement (mass/volume) 147 mg/dL 70-105 Serum or plasma calcium measurement (mass/volume) 7.3 mg/dL 8.5-10.1 Serum or plasma phosphate measurement (m ass/volume) - 12/04/19 03:03 Serum or plasma phosphate measurement (mass/volume) 2.5 mg/dL 2.3-4.7 Magnesium - 12/04/19 03:03 Magnesium 1.8 mg/dL 1.6-2.4 Serum or plasma troponin i.cardiac measu rement (mass/volume) - 12/04/19 03:03 Serum or plasma troponin i.cardiac measurement (mass/v olume) 1.847 ng/mL <0.028 Lipid 1996 panel - 12/04/19 03:03 Serum or plasma triglyceride measurement (mass/volume) 78 mg/dL <150 Serum or plasma cholesterol measurement (mass/volume) 132 mg/dL < 200 Serum or plasma cholesterol in HDL measurement (mass/v olume) 83 mg/dL 40-60 Cholesterol in LDL [mass/volume] in serum or plasma by direct assay 19 mg/dL 1-129 Serum or plasma cholesterol in VLDL measurement (mass/ volume) 16 mg/dL 5-40 THYROID STIMULATING HORMONE - 12/04/19 0 3:03 THYROID STIMULATING HORMONE 0.34 u[iU]/mL 0.35-4.94 Serum or plasma thyroxine (T4) free emily urement (mass/volume) - 12/04/19 03:03 Serum or plasma thyroxine (T4) free measurement (mass/ volume) 0.90 ng/dL 0.70-1.48 Complete blood count (CBC) with automate d white blood cell (WBC) differential - 12/05/19 03:10 Blood leukocytes automated count (number/volume) 9.8 10*3/uL 4.3-11.0 Blood erythrocytes automated count (number/volume) 3.41 10*6/uL 4.35-5.85 Venous blood hemoglobin measurement (mass/volume) 10.8 g/dL 11.5-16.0 Blood hematocrit (volume fraction) 34 % 35-52 Automated erythrocyte mean corpuscular volume 99 [ foz_us] 80-99 Automated erythrocyte mean corpuscular h emoglobin (mass per erythrocyte) 32 pg 25-34 Automated erythrocyte mean corpuscular h emoglobin concentration measurement (mass/volume) 32 g/dL 32-36 Automated erythrocyte distribution width ratio 14. 4 % 10.0- 14.5 Automated blood platelet count (count/volume) 182 10*3/uL 130-400 Automated blood platelet mean volume measurement 10.1 [foz_us] 7.4-10.4 Automated blood neutrophils/100 leukocytes 86 % 42-75 Automated blood lymphocytes/100 leukocytes 7 % 12-44 Blood monocytes/100 leukocytes 7 % 0-12 Automated blood eosinophils/100 leukocytes 0 % 0-10 Automated blood basophils/100 leukocytes 0 % 0-10 Blood neutrophils automated count (number/volume) 8.4 10*3 1.8-7.8 Blood lymphocytes automated count (number/volume) 0.7 10*3 1.0-4.0 Blood monocytes automated count (number/volume) 0. 7 10*3 0.0-1.0 Automated eosinophil count 0.0 10*3/uL 0 .0-0.3 Automated blood basophil count (count/volume) 0.0 10*3/uL 0.0-0.1 Whole blood basic metabolic panel - 11/22 02/08 03:10 Serum or plasma sodium measurement (moles/volume) 143 mmol/L 135-145 Serum or plasma potassium measurement (moles/volume) 3.9 mmol/L 3.6-5.0 Serum or plasma chloride measurement (moles/volume) 116 mmol/L 98-107 Carbon dioxide 20 mmol/L 21-32 Serum or plasma anion gap determination (moles/volume) 7 mmol/L 5-14 Serum or plasma urea nitrogen measurement (mass/volume ) 10 mg/dL 7-18 Serum or plasma creatinine measurement (mass/volume) 0.67 mg/dL 0.60-1.30 Serum or plasma urea nitrogen/creatinine mass ratio 15 NRG Serum or plasma creatinine measurement w ith calculation of estimated glomerular filtration rate > NRG Serum or plasma glucose measurement (mass/volume) 163 mg/dL 70-105 Serum or plasma calcium measurement (mass/volume) 7.1 mg/dL 8.5-10.1 Serum or plasma phosphate measurement (m ass/volume) - 12/05/19 03:10 Serum or plasma phosphate measurement (mass/volume) 2.4 mg/dL 2.3-4.7 Magnesium - 12/05/19 03:10 Magnesium 1.9 mg/dL 1.6-2.4 Encounters ACCT No. Visit Date/Time Discharge Status Pt. Type Provider Facility Loc./Unit Complaint [id number] 12/26/2013 09:16:00 12/26/2013 23:59: 59 CLS Outpatient DREW BERGMAN APRN [facility] [id number] 12/03/2019 16:00:00 020 10:25:00 DIS Inpatient JADEN ZAPATA MD [facility] ICU AFIB W/RVR,PNA,SEPSIS S HOCK VS CARDIOMYTOIC SHOCK [id number] 11/21/2019 14:59:00 020 23:59:59 CLS Outpatient KRYSTIN PETERSON MD [facility] RAD CVA [id number] 07/13/2016 08:04:00 016 23:59:59 CLS Outpatient NABEEL AG DO Via [facility] RAD AGE RELATED OST EOPOROSIS W/O CURRENT PATHOLOGICAL [id number] 01/18/2016 14:23:00 016 23:59:59 CLS Outpatient NABEEL AG DO [facility] RAD ARRHYTHMIA [id number] 11/23/2014 13:52:00 015 23:59:59 CLS Outpatient ADIA CRUZ MD [facility] RAD NECK PAIN, RADI CULOPATHY [id number] 06/18/2014 08:11:00 014 23:59:59 CLS Outpatient ADIA CRUZ MD [facility] RAD OSTEOPOROSIS [id number] 06/01/2014 11:34:00 014 23:59:59 CLS Outpatient ADIA CRUZ MD [facility] LAB RECURRENT URI [id number] 04/09/2014 08:26:00 014 23:59:59 CLS Outpatient ANTHONY DYE, ADIA Powell [facility] RAD [id number] 12/23/2013 14:06:00 014 23:59:59 CLS Outpatient STEINBERG DO, CANDI L [facility] LAB [id number] 10/03/2013 13:27:00 23:59:59 CLS Outpatient STEINBERG DO, CANDI L [facility] LAB [id number] 07/02/2013 13:27:00 23:59:59 CLS Outpatient STEINBERG DO, CANDI L [facility] LAB [id number] 06/13/2013 07:38:00 23:59:59 CLS Outpatient STEINBERG DO, CANDI L Via [facility] [id number] 05/13/2013 06:08:00 013 11:20:00 DIS Outpatient MORIN DO, DEL C [facility] [id number] 05/08/2013 09:40:00 23:59:59 CLS Outpatient MORIN DO, DEL C [facility] PREOP [id number] 04/11/2013 11:01:00 013 23:59:59 CLS Outpatient ANTHONY DYE, ADIA Powell [facility] RAD [id number] 04/10/2013 08:49:00 013 23:59:59 CLS Outpatient AG, ASHLEY L PROOF PLATE MAKER [facility] RAD [id number] 01/07/2013 07:03:00 Document Registration [id number] 01/01/2013 07:39:00 Document Registration [id number] 05/06/2012 05:36:00 Document Registration [id number] 04/29/2012 11:39:00 Document Registration [id number] 04/09/2012 10:07:00 Document Registration
--- OUTSIDE RECORDS SUMMARY | 2019-12-14 09:45 | XMS REPORT | Continuity of Care Document ---
Author Organization Unknown Address Unknown Phone Unavailable Allergies Active Description Code Type Severity Reaction Onset Reported/Identified Relationship to Patient Clinical Status Yes Sulfa (Sulfonamide Antibiotics) [id number] 0491 Drug Allergy Unknown N/A 020 Medications [...] 626.8 01/18/2016 Ot V72.84 01/18/2016 ASHLEY AG SHIFT PRODUCTION SUPERVISOR Ot 787.3 01/18/2016 ASHLEY AG SHIFT PRODUCTION SUPERVISOR Ot 790.6 01/18/2016 ANTHONY DYE, ADIA Powell [...] M79.642 PAIN IN LEFT HAND 11/21/2019 NABEEL AG DO, Ot Z13.820 ENCOUNTER FOR [...] Ot E27. 1 PRIMARY ADRENOCORTICAL INSUFFICIENCY 12/05/2019 JADNE ZAPATA MD Ot E78. 00 PURE HYPERCHOLESTEROLEMIA, [...] Code Description [place] [address] RAFY Ventura (IN-HOUSE) 12/26/2013 [id number] ME ASURE OF CARDIAC SAMPL PRESSURE, L H 12/04/2019 [id number] FL UOROSCOPY OF MULT COR ART USING [...] - 12/03/19 15:55 Bacterial blood culture NG [facility] Blood lactic acid measurement (moles/vol ume) - [...] Status Pt. Type Provider Facility Loc./Unit Complaint [id number] 12/26/2013 09:16:00 12/26/2013 23:59: 59 CLS Outpatient DREW BERGMAN APRN [place] [id number] 12/03/2019 16:00:00 020 10:25:00 DIS Inpatient JADEN ZAPATA MD [facility] ICU AFIB W/RVR,PNA,SEPSIS S HOCK VS CARDIOMYTOIC SHOCK [id number] 11/21/2019 14:59:00 020 23:59:59 CLS Outpatient KRYSTIN PETERSON MD [facility] RAD CVA [id number] 07/13/2016 08:04:00 016 23:59:59 CLS Outpatient NABEEL AG DO [facility] RAD AGE RELATED OST EOPOROSIS W/O CURRENT PATHOLOGICAL [id number] 01/18/2016 14:23:00 016 23:59:59 CLS Outpatient NABEEL AG DO [facility] RAD ARRHYTHMIA [id number] 11/23/2014 13:52:00 015 23:59:59 CLS Outpatient ADIA CRUZ MD [facility] RAD NECK PAIN, RADI CULOPATHY [id number] 06/18/2014 08:11:00 014 23:59:59 CLS Outpatient ADIA CRUZ MD [facility] RAD OSTEOPOROSIS [id number] 06/01/2014 11:34:00 014 23:59:59 CLS Outpatient ADIA CRUZ MD [facility] LAB RECURRENT URI [id number] 04/09/2014 08:26:00 014 23:59:59 CLS Outpatient ANTHONY DYE, ADIA Powell [facility] RAD [id number] 12/23/2013 14:06:00 014 23:59:59 CLS Outpatient STEINBERG DO, CANDI L [facility] LAB [id number] 10/03/2013 13:27:00 23:59:59 CLS Outpatient STEINBERG DO, CANDI L [facility] LAB [id number] 07/02/2013 13:27:00 23:59:59 CLS Outpatient STEINBERG DO, CANDI L [facility] LAB [id number] 06/13/2013 07:38:00 23:59:59 CLS Outpatient STENIBERG DO, CANDI L Via [facility] [id number] 05/13/2013 06:08:00 013 11:20:00 DIS Outpatient MORIN DO, DEL C Via [facility] [id number] 05/08/2013 09:40:00 23:59:59 CLS Outpatient MORIN DO, DEL C [facility] PREOP [id number] 04/11/2013 11:01:00 013 23:59:59 CLS Outpatient ANTHONY DYE, ADIA Powell [facility] RAD [id number] 04/10/2013 08:49:00 013 23:59:59 CLS Outpatient AG, ASHLEY L SHIFT PRODUCTION SUPERVISOR [facility] RAD [id number] 01/07/2013 07:03:00 Document Registration [id number] 01/01/2013 07:39:00 Document Registration [id number] 05/06/2012 05:36:00 Document Registration [id number] 04/29/2012 11:39:00 Document Registration [id number] 04/09/2012 10:07:00 Document Registration
== END 2019-12-05 10:25 | disposition home or self-care (01) | DRG 280 ==
LOC: EDUNIT# 15:16 → ER 15:19 → ICU 16:00
PROVIDERS: ADMIT Family Medicine; ATTEND Family Medicine
PROC: 4A023N7 Measurement of Cardiac Sampling and Pressure, Left Heart, Percutaneous Approach (ICD-10-PCS; principal; 2019-12-04)
PROC: B2111ZZ Fluoroscopy of Multiple Coronary Arteries using Low Osmolar Contrast (ICD-10-PCS; 2019-12-04)
DX: I48.0 Paroxysmal atrial fibrillation (principal); I21.A1 Myocardial infarction type 2; J18.9 Pneumonia, unspecified organism; E27.1 Primary adrenocortical insufficiency; E87.6 Hypokalemia; E03.9 Hypothyroidism, unspecified; E78.00 Pure hypercholesterolemia, unspecified; B37.3 Candidiasis of vulva and vagina; Z90.710 Acquired absence of both cervix and uterus; Z87.440 Personal history of urinary (tract) infections
CPT/HCPCS: 36415; 71045; 80048; 80053; 80061; 80306; 81000; 83605; 83735; 83874; 84100; 84439; 84443; 84484; 85007; 85025; 85027; 85610; 85730; 87040; 87804; 93005; 93041; 93306; 93458; 96361; 96365; 96372; 96375

== ENCOUNTER 2021-01-13 05:58 | Outpatient (CLI) | payer BC ==
[~2021-01-13] VITALS: Ht 165.1 cm; Wt 65.9 kg
[~2021-01-13 05:58] MED LIST changes: +AMLO-251 PO; +APIX5TAB PO; +AZIT250T12 PO; +BENZ200C51 PO; +CEPH-507 PO; +CHOL200025 PO; +CNC1KV INJ; +DEXT15CA28 PO; +ESTR1TAB24 PO; +FLUC100T6 PO; +HYDR5TAB14 PO; +LEVO75TA PO; +LISI20TA26 PO; +MTP100TCR PO; +MULT-567 PO; +NFIPRATRNS NS; +POTA99TA21 PO; +ROSU10TA22 PO; +VITA-261 PO
== END 2021-01-13 13:53 | disposition home or self-care (01) ==
LOC: PREOP 05:58
PROVIDERS: ATTEND Internal Medicine
DX: Z01.818 Encounter for other preprocedural examination (principal)

== ENCOUNTER 2021-01-21 07:57 | Day surgery (SDC) | payer BC ==
--- NOTE | 2021-01-19 07:48 | HISTORY AND PHYSICAL ---
DATE OF SERVICE: COLONOSCOPY HISTORY AND PHYSICAL HISTORY OF PRESENT ILLNESS: The patient is a 60-year-old white female, who presented to the office on 01/10/2021 for followup of Jackson's neuroma as well as bilateral lower extremity numbness. She got some benefit from foot pain from a local injection by Dr. Rangel. MRI, she states did reveal findings compatible with Jackson's neuroma and she was offered surgery, which she would like to put off until the summer. She still, however, having significant extremity numbness, it is symmetrical with a burning type sensation. She has had no associated weakness and has felt well otherwise, denying falls. As I recall, the pain tends to be worse as the day goes on including nighttime when she is supine. She has noted no other neurologic change and this is a symmetrical process. It had been 11 years since her last colonoscopy, so she is being set up for screening colonoscopy. She reports that she has been having bloating with gas for the last two months. There has been no diarrhea or constipation. She has not been on any antibiotics and she denies pain or change in weight. She has noted no melena or bright red blood per rectum. There has been no travel history. PHYSICAL EXAMINATION: GENERAL: Reveals a white female who appeared to be in no acute distress. VITAL SIGNS: Weight was stable at 127 pounds. Initial blood pressure 120/90, when repeated 120/82. HEENT: Unremarkable. Sclerae nonicteric. CHEST: Clear. CARDIOVASCULAR: Regular rate and rhythm without murmur, S3 or S4. ABDOMEN: Soft, supple without mass, organomegaly or tenderness. No overt distention was noted. EXTREMITIES: Reveal no cyanosis, clubbing or edema. There is some diminished sensation to the level of the ankles bilaterally. Subjectively, no evidence for muscular atrophy is noted. Strength is 5+ and symmetrical and no visual abnormalities were noted on inspection of the extremities. ASSESSMENT AND PLAN: 1. The patient is being set up for screening colonoscopy. Prep instructions with Suprep kit were given and questions were answered. Procedure will be done under Diprivan based anesthesia. 2. Suspect peripheral neuropathy. Chart was reviewed. No history of diabetes. Earlier this year, B12 level was upper limits of normal at 898. She did have an A1c level of 5.7 indicative of some insulin resistance with a sugar of 130. The remainder of her chemistry panel was normal. TSH is 1.04 and she has chronic high HDL 114, LDL of 31 and a triglyceride level of 106. This certainly raises the possibility that insulin resistance is contributing. We will discuss this further with the patient at the time of her colonoscopy being done on 01/28/2021. 3. 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 Deferred to Dr. Rangel, possible surgery to follow this summer. Job ID: [id number] DocumentID: [id number] Dictated Date: 01/11/2021 12:02:03 Court Liaison Date: 01/11/2021 12:20:13 Dictated By: KRYSTIN PETERSON MD
[~2021-01-21] VITALS: Ht 165.1 cm; Wt 65.9 kg
[2021-01-21] MEDS ORDERED: LACTATED RINGERS 1,000 ML IV STA (08:05)
[2021-01-21] MEDS ORDERED: LACTATED RINGERS 1,000 ML IV ONE (08:10)
[2021-01-21] MEDS ORDERED: LIDOCAINE JELLY 2% 6 ML SYRINGE MM PRN (08:15)
[2021-01-21 08:23] VITALS: BP 177/113
[2021-01-21] MEDS ORDERED: meTOprolol 5 MG/5 ML (LOPRESSOR) VIAL ONE (08:25)
--- NOTE | 2021-01-21 08:43 | Pre-Op Note & Conscious Sedat ---
Pre-Operative Progress Note H&P Reviewed The H&P was reviewed, patient examined and no changes noted. Date H&P Reviewed: Jan 21, 2021 Time H&P Reviewed: 08:43 Conscious Sedation Pre-Proced ASA Score 2 For ASA 3 and 4: Consider anesthesia and medical clearance. Also, for patients with a history of failed moderate sedation consider anesthesia. Airway Lungs Heart ASA score ASA 1: a normal healthy patient ASA 2: a patient with a mild systemic disease (mid diabetes, controlled hypertension, obesity ASA 3: a patient with a severe systemic disease that limits activity (angina, COPD, prior Myocardial infarction) ASA 4: a patient with an incapacitating disease that is a constant threat to life (CHF, renal failure) ASA 5: a moribund patient not expected to survive 24 hrs. (ruptured aneurysm) ASA 6: a declared brain- patient whose organs are being harvested. For emergent operations, add the letter E after the classification Mallampati Classification Grade 1 Sedation Plan Analgesia, Amnesia, Plan communicated to team members, Discussed options with patient/fam, Discussed risks with patient/fam The patient is an appropriate candidate to undergo the planned procedure, sedation, and anesthesia. The patient immediately re-assessed prior to indication. KRYSTIN PETERSON MD Jan 21, 2021 08:43
[2021-01-21] MEDS ORDERED: PROPOFOL INJECTION 50 ML IV ONE ×2 (09:24)
[2021-01-21] MEDS ORDERED: MIDAZOLAM 2 MG/2 ML (VERSED) VIAL ONE (09:24)
[2021-01-21 10:20] VITALS: BP 110/69
[2021-01-21 10:25] VITALS: BP 116/75
[2021-01-21 10:50] VITALS: BP 137/96
[2021-01-21 11:15] VITALS: BP 137/96
--- NOTE | 2021-01-21 11:55 | Anesthesia-General Post-Op ---
MAC Patient Condition Mental Status/LOC: Same as Preop Cardiovascular: Satisfactory Nausea/Vomiting: Absent Respiratory: Satisfactory Pain: Controlled Complications: Absent Post Op Complications Complications None Follow Up Care/Instructions Patient Instructions None needed. Anesthesiology Discharge Order Discharge Order Patient is doing well, no complaints, stable vital signs, no apparent adverse anesthesia problems. No complications reported per nursing. RODRICK IYER CRNA Jan 21, 2021 11:55
--- NOTE | 2021-01-21 16:21 | OPERATIVE REPORT ---
DATE OF SERVICE: COLONOSCOPY SUMMARY INDICATION FOR THE PROCEDURE: Screening colonoscopy. The patient was placed in the left lateral decubitus position. Prior to undergoing colonoscopy, digital rectal evaluation was performed. Anal sphincter tone was normal and the perianal reflexes intact. No abnormalities were noted on digital inspection of anal canal or distal rectal vault. The colonoscope was inserted into the rectum and under direct visualization advanced to cecum. The cecum was identified by identification of the ileocecal valve and cecal strap. Photographic documentation was obtained. Careful inspection was made as colonoscope withdrawn. The procedure was under Diprivan based anesthesia. FINDINGS: There was no evidence for internal or external hemorrhoids and the rectum, sigmoid colon, descending colon, transverse colon, ascending colon and cecum were unremarkable with no evidence for neoplasia, diverticular disease or other abnormality. ASSESSMENT: Normal colonoscopy to cecum. Consideration for repeat screening colonoscopy in 10 years. Job ID: [id number] DocumentID: [id number] Dictated Date: 01/21/2021 11:25:11 Import Coordination And Production Head Date: 01/21/2021 16:20:24 Dictated By: KRYSTIN PETERSON MD
== END 2021-01-21 11:15 | disposition home or self-care (01) ==
LOC: ENDO 07:57
PROVIDERS: ATTEND Internal Medicine
DX: Z12.11 Encounter for screening for malignant neoplasm of colon (principal); I10 Essential (primary) hypertension; I48.91 Unspecified atrial fibrillation; E03.9 Hypothyroidism, unspecified; Z79.899 Other long term (current) drug therapy; Z88.2 Allergy status to sulfonamides

== ENCOUNTER → 2021-03-30 | Outpatient (CLI) | payer BC | LOC: LABNPT 06:25 | PROVIDERS: ATTEND Podiatrist | DX: Z01.812 Encounter for preprocedural laboratory examination (principal); Z20.822 Contact with and (suspected) exposure to COVID-19 | CPT/HCPCS: 87635 ==

== ENCOUNTER 2022-07-11 13:47 | Outpatient (RCR) | payer BC ==
[2022-06-27 16:04] LABS: ABSOLUTE RETIC # 87 10e9/uL (24-90); BASOPHILS % (AUTO) 0 % (0-10); EOSINOPHILS % (AUTO) 0 % (0-10); HEMATOCRIT 40 % (35-52); HEMOGLOBIN 13.4 g/dL (11.5-16.0); LYMPHOCYTES # (AUTO) 1.1 10^3/uL (1.0-4.0); LYMPHOCYTES % (AUTO) 12 % (12-44); MEAN CORPUSCULAR HEMOGLOBIN 34 pg (25-34); MEAN CORPUSCULAR HGB CONC 34 g/dL (32-36); MEAN CORPUSCULAR VOLUME 102 fL (80-99); MEAN PLATELET VOLUME 10.3 fL (9.0-12.2); MONOCYTES # (AUTO) 0.8 10^3/uL (0.0-1.0); MONOCYTES % (AUTO) 8 % (0-12); NEUTROPHILS % (AUTO) 78 % (42-75); PLATELET COUNT 179 10^3/uL (130-400); RETICULOCYTE % 2.22 % (0.50-2.40)
[2022-06-27 16:22] LABS: ELLIPT/OVALOCYTES SLIGHT; LYMPHOCYTES % (MANUAL) 18 %; MONOCYTES % (MANUAL) 9 %; NEUTROPHILS % (MANUAL) 73 %; POLYCHROMASIA SLIGHT; ROULEAUX SLIGHT
[2022-06-27 16:28] LABS: ALBUMIN 3.9 GM/DL (3.2-4.5); BILIRUBIN,TOTAL 0.5 MG/DL (0.1-1.0); CALCIUM 9.2 MG/DL (8.5-10.1); CREATININE SERUM 0.73 MG/DL (0.60-1.30); POTASSIUM 3.5 MMOL/L (3.6-5.0)
[2022-06-29 13:37] LABS: IMMUNOFIX PATH REPORT NUMBER Complete (Complete)
[~2022-07-11 13:47] MED LIST changes: +FLUC100T10 PO; -FLUC100T6 PO; +NF-CRES10T PO; -POTA99TA21 PO; +POTA99TA26 PO; -ROSU10TA22 PO
== END 2022-07-21 | disposition home or self-care (01) ==
LOC: ONC 13:47
PROVIDERS: ATTEND Internal Medicine Hematology & Oncology
DX: D53.9 Nutritional anemia, unspecified (principal); I10 Essential (primary) hypertension
CPT/HCPCS: 80053; 82525; 82746; 83615; 84165; 84443; 85007; 85027; 85045; 85055; 86334; 87389; G0463; 36415; 84155; 99204; 99213

== ENCOUNTER 2022-09-01 07:27 | Emergency (ER) | payer BC ==
[~2022-09-01] VITALS: Ht 167.7 cm; Wt 55.3 kg
[2022-09-01 07:59] LABS: BASOPHILS # (AUTO) 0.1 10^3/uL (0.0-0.1); BASOPHILS % (AUTO) 1 % (0-10); EOSINOPHILS # (AUTO) 0.1 10^3/uL (0.0-0.3); EOSINOPHILS % (AUTO) 1 % (0-10); HEMATOCRIT 41 % (35-52); HEMOGLOBIN 13.1 g/dL (11.5-16.0); LYMPHOCYTES # (AUTO) 1.8 10^3/uL (1.0-4.0); LYMPHOCYTES % (AUTO) 24 % (12-44); MEAN CORPUSCULAR HEMOGLOBIN 33 pg (25-34); MEAN CORPUSCULAR HGB CONC 32 g/dL (32-36); MEAN CORPUSCULAR VOLUME 105 fL (80-99); MONOCYTES # (AUTO) 0.9 10^3/uL (0.0-1.0); MONOCYTES % (AUTO) 12 % (0-12); NEUTROPHILS # (AUTO) 4.5 10^3/uL (1.8-7.8); NEUTROPHILS % (AUTO) 61 % (42-75); PLATELET COUNT 210 10^3/uL (130-400); WHITE BLOOD COUNT 7.3 10^3/uL (4.3-11.0)
[2022-09-01] MEDS ORDERED: NS IV 1000 ML 1,000 ML IV SCH (08:00)
--- NOTE | 2022-09-01 08:06 | ED Cardiac General ---
History of Present Illness General Chief Complaint: Cardiac/General Problems Stated Complaint: RAPID A-FIB Nursing Triage Note: PT AMB TO RM 6 WITH COMPLAINT OF A FIB. 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 Source: patient Exam Limitations: no limitations History of Present Illness Date Seen by Provider: Sep 01, 2022 Time Seen by Provider: 07:45 Initial Comments 61-year-old female presents for "rapid A. fib." She states about a year ago she had a similar presentation which was her first episode of atrial fibrillation. She has been on metoprolol and Eliquis and has not really had much trouble within the last year. She has no known other cardiac history. She is having some discomfort in her left anterior chest and down her left arm. No dizziness, lightheadedness or shortness of breath. No recent illnesses. No recent changes in her medications. Symptoms started about 30 minutes prior to arrival. Allergies and Home Medications Allergies Coded Allergies: Sulfa (Sulfonamide Antibiotics) (Unverified Allergy, Unknown, 12/03/19) Patient Home Medication List Home Medication List Reviewed: Yes Apixaban (Eliquis) 5 Mg Tablet, 5 MG PO BID Prescribed by: JADEN ZAPATA on 12/05/19 0826 Cholecalciferol (Vitamin D3) (Vitamin D3) 2,000 Unit Tablet, 2,000 UNIT PO DAILY, (Reported) Entered as Reported by: ERNESTO ROTH on 12/04/19 1040 Cyanocobalamin (Cyanocobalamin Injection) 1,000 Mcg/Ml Inj, 1,000 MCG INJ EVERY 2 WEEKS, (Reported) Entered as Reported by: ERNESTO ROTH on 12/04/19 1036 Dextromethorphan HBr (Robitussin) 15 Mg Capsule, 30 MG PO Q6H PRN for COUGH, (Reported) Entered as Reported by: ERNESTO ROTH on 12/04/19 1036 Estradiol (Estradiol Tablet) 1 Mg Tablet, 1 MG PO DAILY, (Reported) Entered as Reported by: ERNESTO ROTH on 12/04/19 1036 Fluconazole (Fluconazole) 100 Mg Tablet, 100 MG PO DAILY, (Reported) Entered as Reported by: ERNESTO ROTH on 12/04/19 1036 Fludrocortisone Acetate (Fludrocortisone Acetate) 0.1 Mg Tab, 0.1 MG PO DAILY, (Reported) Entered as Reported by: ERNESTO ROTH on 12/04/19 1036 Hydrocortisone (Hydrocortisone) 5 Mg Tablet, 10 MG PO DAILY, (Reported) Entered as Reported by: ERNESTO ROTH on 12/04/19 103 Hydrocortisone (Cortef) 5 Mg Tablet, 7.5 MG PO 1600, (Reported) Entered as Reported by: ERNESTO ROTH on 12/04/19 103 Ipratropium Billings (Ipratropium Billings) 15 Ml Naspr, 1 SPRAY NS BID, (Reported) Entered as Reported by: ERNESTO ROTH on 12/04/19 103 Levothyroxine Sodium (Synthroid) 75 Mcg Tablet, 75 MCG PO DAILY, (Reported) Entered as Reported by: ERNESTO ROTH on 12/04/19 103 Lisinopril (Lisinopril) 20 Mg Tablet, 20 MG PO DAILY Prescribed by: JADEN ZAPATA on 12/05/19 0826 Metoprolol Succinate (Metoprolol Succinate) 100 Mg Tab.er.24h, 100 MG PO DAILY Prescribed by: JADEN ZAPATA on 12/05/19 0826 Multivitamin (Multivitamins) 1 Each Tablet, 1 TAB PO DAILY, (Reported) Entered as Reported by: ERNESTO ROTH on 12/04/19 1040 Potassium Gluconate (Potassium) 99 Mg Tablet, 99 MG PO DAILY, (Reported) Entered as Reported by: ERNESTO ROTH on 12/04/19 104 Rosuvastatin Calcium (Crestor) 10 Mg Tablet, 10 MG PO DAILY, (Reported) Entered as Reported by: ERNESTO ROHT on 12/04/19 1036 Vitamin E (Dl,Tocopheryl Acet) (Vitamin E) 400 Unit Capsule, 400 UNIT PO DAILY, (Reported) Entered as Reported by: ERNESTO ROTH on 12/04/19 1040 Review of Systems Review of Systems Constitutional: no symptoms reported EENTM: No Symptoms Reported Respiratory: No Symptoms Reported Cardiovascular: Chest Pain, Irregular Heart Rate Gastrointestinal: No Symptoms Reported Genitourinary: No Symptoms Reported Musculoskeletal: no symptoms reported Skin: no symptoms reported Psychiatric/Neurological: No Symptoms Reported Endocrine: No Symptoms Reported Hematologic/Lymphatic: No Symptoms Reported Past Tiyncwv-Ampusa-Djrkqp Hx Patient Social History Tobacco Use?: No Use of E-Cig and/or Vaping dev: No Substance use?: No Alcohol Use?: Yes Alcohol type: Beer Alcohol Frequency: Daily Pt feels they are or have been: No Past Medical History Surgeries: Yes Hysterectomy Respiratory: No Currently Using CPAP: No Cardiac: No High Cholesterol Neurological: No Reproductive Disorders: No Female Reproductive Disorders: Denies, 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 oz. 54.495063gv; 19.00 BMI Method: General Appearance: No Apparent Distress, WD/WN HEENT: Normal ENT Inspection, Pharynx Normal Neck: Normal Inspection, Non Tender, Supple Respiratory: Chest Non Tender, Lungs Clear, Normal Breath Sounds, No Accessory Muscle Use, No Respiratory Distress Cardiovascular: No Edema, No Gallop, No JVD, No Murmur, Normal Peripheral Pulses, Irregularly Irregular, Tachycardia Gastrointestinal: Normal Bowel Sounds, No Organomegaly, No Pulsatile Mass, Non Tender, Soft Neurologic/Psychiatric: Alert, Oriented x3, No Motor/Sensory Deficits Skin: Normal Color, Warm/Dry Lymphatic: No Adenopathy Procedures/Interventions Patient Education: Explained Benefits, Explained Risks, Pt. Ack. Understanding Agreement on procedure with pt: Yes Breath Sounds per Auscultation: Clear Heart Sounds per Auscultation: Irregular Airway Exam: Mouth opens >2 fingers Total Time spent in CS 10 Re-examination Back to normal baseline with normal vital signs normal exam Additional Procedures: cardioversion/defib Progress Synchronized cardioversion performed under procedural sedation. Single synchronized cardioversion at 200 J was successful. Patient tolerated well without any complications Progress/Results/Core Measures Results/Orders Lab Results Laboratory Tests Test 09/01/22 07:35 Range/Units White Blood Count 7.3 4.3-11.0 10^3/uL Red Blood Count 3.92 3.80-5.11 10^6/uL Hemoglobin 13.1 11.5-16.0 g/dL Hematocrit 41 35-52 % Mean Corpuscular Volume 105 H 80-99 fL Mean Corpuscular Hemoglobin 33 25-34 pg Mean Corpuscular Hemoglobin Concent 32 32-36 g/dL Red Cell Distribution Width 13.8 10.0-14.5 % Platelet Count 210 130-400 10^3/uL Mean Platelet Volume 11.0 9.0-12.2 fL Immature Granulocyte % (Auto) 0 % Neutrophils (%) (Auto) 61 42-75 % Lymphocytes (%) (Auto) 24 12-44 % Monocytes (%) (Auto) 12 0-12 % Eosinophils (%) (Auto) 1 0-10 % Basophils (%) (Auto) 1 0-10 % Neutrophils # (Auto) 4.5 1.8-7.8 10^3/uL Lymphocytes # (Auto) 1.8 1.0-4.0 10^3/uL Monocytes # (Auto) 0.9 0.0-1.0 10^3/uL Eosinophils # (Auto) 0.1 0.0-0.3 10^3/uL Basophils # (Auto) 0.1 0.0-0.1 10^3/uL Immature Granulocyte # (Auto) 0.0 0.0-0.1 10^3/uL Sodium Level 142 135-145 MMOL/L Potassium Level 3.5 L 3.6-5.0 MMOL/L Chloride Level 106 98-107 MMOL/L Carbon Dioxide Level 24 21-32 MMOL/L Anion Gap 12 5-14 MMOL/L Blood Urea Nitrogen 20 H 7-18 MG/DL Creatinine 0.89 0.60-1.30 MG/DL Estimat Glomerular Filtration Rate 75 BUN/Creatinine Ratio 22 Glucose Level 93 70-105 MG/DL Calcium Level 8.7 8.5-10.1 MG/DL Magnesium Level 2.0 1.6-2.4 MG/DL Troponin I < 0.028 <0.028 NG/ML My Orders Orders - PAOLAMERISSA DO Ekg Tracing (09/01/22 07:33) Basic Metabolic Panel (09/01/22 07:51) Magnesium (09/01/22 07:51) Troponin I Bryson (09/01/22 07:51) Chest 1 View, Ap/Pa Only (09/01/22 07:51) Cbc With Automated Diff (09/01/22 07:51) Diltiazem Injection (Cardizem Injection) (09/01/22 08:00) Ns Iv 1000 Ml (Sodium Chloride 0.9%) (09/01/22 08:00) Etomidate Injection (Amidate Injection) (09/01/22 09:45) Ekg Tracing (09/01/22 10:02) Potassium Chloride (Tablet) (K Dur Table (09/01/22 10:15) Medications Given in ED Vital Signs/I&O 09/01/22 09/01/22 09/01/22 09/01/22 07:29 08:05 09:55 10:00 Pulse 147 130 Resp 18 B/P (MAP) 111/94 (100) 105/90 Pulse Ox 95 97 O2 Delivery Room Air Room Air Room Air 09/01/22 11:18 Pulse 58 Resp 13 B/P (MAP) 159/94 Pulse Ox 97 O2 Delivery Room Air Blood Pressure Mean: 100 EKG : Comment Atrial fibrillation with a rate of 133 bpm. Normal intervals outside of [place] interval. Significant ST depressions with some T wave inversions most prominent in the lateral leads. No STEMI. Slight left axis deviation. Diagnostic Imaging Comments AP chest x-ray negative for any acute findings Critical Care Note Critical Care Start Time: 07:30 Departure Communication (Admissions) Patient is tachycardic, borderline hypotensive. Initial small dose of Cardizem improved heart rate. Gradually initially but quickly went back to where it was prior to any treatment. She is on Eliquis, has not missed any doses. I confirm she has not missed any doses of this medicine in the last 30 days and in fact has been even longer than that. She is typically in a sinus rhythm. I spoke with Dr. Floyd about cardioversion. He is in agreement that this is likely safe for this patient and the best therapeutic option at this time. We sedated her with etomidate which she tolerated well and single synchronized cardioversion at 200 J was successful. We watched her for significant period of time after and she maintained sinus rhythm and is feeling much better. Her blood pressures are improved in the 140s systolic. She is slightly hypokalemic at 3.5 so I did replete some orally. Advised her to follow-up with her primary doctor and performance improvement coordinator. Given strict return precautions for strokelike symptoms, chest pain dizziness. She is discharged in stable condition. Impression Primary Impression: Atrial fibrillation with RVR Additional Impression: Chest pain Qualified Codes: R07.9 - Chest pain, unspecified Disposition: 01 HOME, SELF-CARE Condition: Stable Departure-Patient Inst. Referrals: KRYSTIN PETERSON MD (PCP/Family) Primary Care Physician Patient Instructions: Atrial Fibrillation and Atrial Flutter ED Add. Discharge Instructions: You were seen in the emergency department today for atrial fibrillation and fast heart rate. As discussed your heart was cardioverted back into a normal rhythm. Continue to take your Eliquis, it is important that you do not miss any doses of this medicine. I would continue to take your current dose of metoprolol and call your heart doctor to follow-up in 1 to 2 weeks. Keep your appointment with your primary doctor next week as previously scheduled. Return to the emergency department immediately if you develop any chest pain, shortness of breath lightheadedness or strokelike symptoms. Follow-up with your primary physician for any nonemergent needs. All discharge instructions reviewed with patient and/or family. Voiced understanding. MERISSA GUEVARA DO Sep 01, 2022 08:06
[2022-09-01 08:10] LABS: CHLORIDE 106 MMOL/L (98-107); POTASSIUM 3.5 MMOL/L (3.6-5.0); SODIUM 142 MMOL/L (135-145)
[2022-09-01 08:11] LABS: CALCIUM 8.7 MG/DL (8.5-10.1)
[2022-09-01 08:12] LABS: GLUCOSE 93 MG/DL (70-105)
[2022-09-01 08:13] LABS: CARBON DIOXIDE 24 MMOL/L (21-32)
[2022-09-01 08:16] LABS: BUN/CREATININE RATIO 22; CREATININE SERUM 0.89 MG/DL (0.60-1.30); GFR ESTIMATED 75
--- NOTE | 2022-09-01 09:05 | Diagnostic Imaging Report ---
CHEST 1 VIEW, AP/PA ONLY Indication: Chest pain Comparison: 12/05/2019 Findings: No focal airspace disease in the visualized lungs. No pleural effusion or pneumothorax. Pleural effusions have resolved. Normal cardiomediastinal silhouette. Impression: 1. No acute cardiopulmonary process by portable radiography. Dictated by: Dictated on workstation # [id number]
[2022-09-01] MEDS ORDERED: ETOMIDATE IV SOLN 20 MG/10 ML VIAL IV ONE (09:45)
[2022-09-01] MEDS ORDERED: KCL 20 MEQ TAB (K-DUR) PO ONE (10:15)
[2022-09-01 11:18] VITALS: BP 159/94
== END 2022-09-01 11:18 | disposition home or self-care (01) ==
LOC: EDUNIT# 07:27 → ER 07:29
DX: I48.20 Chronic atrial fibrillation, unspecified (principal); Z79.01 Long term (current) use of anticoagulants
CPT/HCPCS: 36415; 71045; 80048; 83735; 84484; 85025; 93005

== ENCOUNTER → 2023-03-20 | Outpatient (CLI) | payer BC ==
--- NOTE | 2023-03-20 18:02 | Diagnostic Imaging Report ---
INDICATION: Cough x5 weeks EXAMINATION: Two-view chest 03/20/2023 COMPARISON: 09/01/2022 FINDINGS: The cardiomediastinal silhouette is unremarkable. The pulmonary vasculature is within normal limits. The lungs and pleural spaces are clear. IMPRESSION: No evidence of an acute cardiopulmonary process. Dictated by: Dictated on workstation # [id number]
== END ==
LOC: RAD 10:39
PROVIDERS: ATTEND Nurse Practitioner Family
DX: R05.3 Chronic cough (principal)
CPT/HCPCS: 71046; 87070

== ENCOUNTER → 2023-09-03 | Outpatient (CLI) | payer BC ==
--- NOTE | 2023-09-03 10:04 | Diagnostic Imaging Report ---
PROCEDURE: US PELVIC (NON OB) TECHNIQUE: Multiple real-time grayscale images were obtained over the pelvis in various projections transabdominally. INDICATION: Bladder pain. Frequent urination. COMPARISON: None FINDINGS: Limited sonographic evaluation of the pelvis was performed. Urinary bladder is mildly distended. Prevoid bladder volume measures 41 mL. Post void residual measures 2 to 3 mL. No large intraluminal filling defects are seen. There is no ascites. IMPRESSION: 1. Pre and post void bladder volumes as above. Dictated by: Dictated on workstation # [id number]
== END ==
LOC: RAD 08:20
PROVIDERS: ATTEND Nurse Practitioner Family
DX: R39.89 Other symptoms and signs involving the genitourinary system (principal); R35.0 Frequency of micturition
CPT/HCPCS: 76856